=== PATIENT | female | born 1935 | race Caucasian/White ===

== ENCOUNTER 2020-09-30 09:14 | Emergency (ER) | payer OTHER, SELFPAY ==
[2020-09-30 09:26] VITALS: BP 185/53; PULSE 78; RESP 16; TEMP 36.4; O2SAT 97
--- NOTE | 2020-09-30 09:48 | ED.GENADULT ---
HPI - General Adult General Chief complaint: Dental/Oral Stated complaint: jaw pain Time Seen by Provider: 09/30/20 09:48 Source: patient Mode of arrival: ambulatory Limitations: no limitations History of Present Illness HPI narrative: 84-year-old female patient presents to the [facility] with complaints of left-sided jaw pain for the past 3 to 4 days. Patient denies any injury to the area. Patient denies any pain when opening and closing the mouth or denies any pain with eating. Patient states she has only taken 1 Tylenol in the last 4 days since she has had the pain. Patient states the pain kind of comes and goes however when it does, feels like a shooting pain down the left side of the cheek and gets very intense. Patient states she does not have any teeth in the back of her mouth. Denies any ear pain or sore throat. Denies any fevers, body aches or chills. Patient does have history of CVA. Patient states that she still does smoke as well. Related Data Home Medications Medication Instructions Recorded Confirmed amlodipine 09/30/20 atorvastatin 09/30/20 clopidogrel 09/30/20 lisinopril 09/30/20 metoprolol succinate PO 09/30/20 Allergies Allergy/AdvReac Type Severity Reaction Status Date / Time Penicillins Allergy Unknown Verified 05/24/16 10:01 Review of Systems Review of Systems: Narrative: CONSTITUTIONAL: Denies fever, chills, or sweats. EYES: Denies visual changes, redness, or discharge. ENT: Denies rhinorrhea, congestion, sore throat, or otalgia. CARDIOVASCULAR: Denies chest pain, palpitations, or edema. RESPIRATORY: Denies cough or dyspnea. GASTROINTESTINAL: Denies abdominal pain, nausea, vomiting, or diarrhea. GENITOURINARY: Denies dysuria or hematuria. SKIN: Denies rash or itching. MUSCULOSKELETAL: Denies back pain, joint pain, or myalgia. NEUROLOGIC: Denies headache, numbness, or weakness. Positive left-sided jaw pain x3 to 4 days PSYCHIATRIC: Denies anxiety or depression. [facility] Past Medical History Medical History (Updated 09/30/20 @ 10:06 by AVA Mojica) Cataract Bilateral CVA (cerebral vascular accident) X4 Diabetes Controlled with diet Hypercholesteremia Hypertension Pneumonia TIA (transient ischemic attack) Surgical History Surgical History (Updated 09/30/20 @ 09:49 by AVA Mojica) H/O: hysterectomy History of appendectomy Hx of cholecystectomy Family History Family History (Updated 09/30/20 @ 09:51 by AVA Mojica) Other Acute alcohol abuse Acute myocardial infarction Alzheimer disease Brain aneurysm COPD (chronic obstructive pulmonary disease) Carcinoma of colon Cerebrovascular accident Diabetes mellitus Heart disease Hypertension Throat cancer Exam Narrative: Exam Narrative: GENERAL: Well-appearing, well-nourished, and in no acute distress. HEAD: Normocephalic, atraumatic. EYES: PERRLA and EOMI. ENT: Nares clear, no rhinorrhea or epistaxis. Mucous membranes moist. Bilateral TMs are clear with no erythema or foreign bodies in the canal. There is some scar tissue noted to bilateral TMs. Posterior pharynx with no erythema, tonsillectomy, exudates or lesions present. The oral cavity does not suggest any obvious abscesses or infected dental caries. There is no pain on palpation to the left cheek or no obvious abscesses are identified. No obvious TMJ noted during exam. NECK: Supple. No lymphadenopathy CHEST: Clear to auscultation. No respiratory distress. HEART: Regular rate and rhythm. No murmur heard. Normal peripheral pulses. ABDOMEN: Soft, nontender, nondistended, normal active bowel sounds. EXTREMITIES: Normal range of motion. No edema. SKIN: Warm, dry, no rash. NEURO: No focal deficits. Alert and oriented x3. Course Reevaluation(s) Reevaluation #1: attempted to call patients's primary doctor to try and get her follow up today or tomorrow, unable to get thru at this time. advised patient to try and call PMD la
--- NOTE | 2020-09-30 10:03 | ECG_ITS ---
Measurements Intervals [place] Rate: 66 P: 72 WA: 183 QRS: 40 QRSD: 85 T: 69 QT: 394 QTc: 414 Interpretive Statements SINUS RHYTHM VENTRICULAR PREMATURE COMPLEX DELAYED PRECORDIAL R/S TRANSITION BORDERLINE ST-T WAVE ABNORMALITY- HIGH LATERAL LEADS BASELINE ARTIFACT- I, II, III, AVR, AVL, AVF, V1-V2, V6 BORDERLINE ECG Electronically Signed On 09-30-2020 11:45:22 CDT by Fan Bloom D.O.
== END 2020-09-30 10:25 | disposition home or self-care (01) ==
PROVIDERS: Emergency Provider Nurse Practitioner Family; PCP Internal Medicine
DX: R68.84 Jaw pain (principal); Z86.73 Personal history of transient ischemic attack (TIA), and cerebral infarction without residual deficits; E78.00 Pure hypercholesterolemia, unspecified; I10 Essential (primary) hypertension; E11.36 Type 2 diabetes mellitus with diabetic cataract
CPT/HCPCS: 93005; 99213; G0463

== ENCOUNTER 2020-09-30 14:11 | Emergency (ER) | payer OTHER, SELFPAY ==
--- NOTE | ~2020-09-30 | CT_ITS ---
EXAMINATION: CT facial bones w con DATE: 09/30/2020 18:50 INDICATION: Left facial pain. TECHNIQUE: Computed tomography (CT) of the facial bones and maxillofacial region was performed with 7 5 mL Omnipaque 350 intravenous contrast. Automated exposure control and iterative reconstruction tech Lazarus Effect were employed. The dose-length product was 270.87 mGy-cm. COMPARISON: None. FINDINGS: There are likely changes of ocular lens replacement surgeries. There is a 2.3 cm nodule in left thyroid lobe. There are no pathologically enlarged lymph nodes. There is a 1.8 x 1.3 cm cystic m ass in superficial right parotid gland. There is a 10 x 13 mm mass in superficial right parotid gland . There is plaque in the proximal internal carotid arteries with less than 50% stenosis relative to n ormal distal artery lumen diameters. There is severe cervical spondylosis. IMPRESSION: 1. 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 The differential diagnosis includes benign mixed tumor, Warthin koko or, or less likely primary malignancy or katie metastatic disease. Reviewed, dictated and finalized at location A. IMPRESSION: 1. 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 The differential diagnosis includes benign mi xed tumor, Warthin tumor, or less likely primary malignancy or katie metastatic disease.
[2020-09-30 15:05] VITALS: BP 128/49; PULSE 70; RESP 16; TEMP 36.1; O2SAT 95
[2020-09-30 17:05] VITALS: BP 159/59; PULSE 72; RESP 16; O2SAT 94
[2020-09-30 17:35] LABS: Basophils Percent Auto 0.5 % (0.2-1.2); Eosinophils Absolute Auto 0.3 K/mm3 (0-0.3); Eosinophils Percent Auto 3.8 % (0-4.4); Hematocrit 45.9 % (37.0-47.0); Hemoglobin 15.1 g/dL (12.0-15.0); Immature Granulocyte Absolute 0.02 K/mm3 (0.00-0.031); Immature Granulocyte Percent A 0.2 % (0-0.5); Lymphocytes Percent Auto 25.9 % (18.3-44.2); Mean Corpuscular HGB Conc 32.9 g/dl (32-36); Mean Corpuscular Hemoglobin 28.9 pg (26-34); Mean Corpuscular Volume 87.9 fl (80-100); Mean Platelet Volume 10.3 fl (7.4-10.4); Monocytes Absolute Auto 0.6 K/mm3 (0.1-0.6); Monocytes Percent Auto 7.3 % (2.6-8.5); Neutrophils Absolute Auto 5.1 K/mm3 (1.3-6.7); Neutrophils Percent Auto 62.3 % (45.5-73.1); Platelet Count Result 231 k/mm3 (150-375); Red Blood Count 5.22 M/mm3 (4.2-5.4); Red Cell Distribution Width 12.9 % (11.5-14.5); White Blood Count 8.1 K/mm3 (4.5-10.0)
[2020-09-30 17:50] LABS: Anion Gap 6 mmol/L (8-16); Blood Urea Nitrogen 20 mg/dL (7-17); CRP < 0.5 mg/dL (<1.0); Carbon Dioxide 25 mmol/L (22-30); Chloride 108 mmol/L (98-107); Estimated CRCL calculation 23 ml/min; Estimated Glomerular Filt Rate 39; Glucose 108 mg/dL (65-105); Potassium 4.6 mmol/L (3.4-5.0); Sodium 139 mmol/L (137-145)
--- NOTE | 2020-09-30 19:31 | ED.GENADULT ---
HPI - General Adult General Chief complaint: Unspecified Stated complaint: r jaw pain/eye drooping Time Seen by Provider: 09/30/20 16:55 Source: patient and family Mode of arrival: ambulatory Limitations: no limitations History of Present Illness HPI narrative: 84-year-old with a history of hypertension, CVA here with complaints of left facial pain mostly around the cheek area for last few days. Patient states she went to urgent care and was later referred here to the ER for evaluation. She patient denies any trauma. No history of fever or chills. EKG done at urgent care was unremarkable. Related Data Home Medications Medication Instructions Recorded Confirmed amlodipine 09/30/20 atorvastatin 09/30/20 clopidogrel 09/30/20 lisinopril 09/30/20 metoprolol succinate PO 09/30/20 Allergies Allergy/AdvReac Type Severity Reaction Status Date / Time Penicillins Allergy Severe Anaphylaxis Verified 09/30/20 17:05 Review of Systems Review of Systems: All systems reviewed & are unremarkable except as noted in HPI and below Constitutional: Constitutional: Reports no additional constitutional complaints Eyes: Eyes: Reports no additional eye complaints ENT: Reports as per HPI Cardiovascular: Cardiovascular: Reports no additional cardiovascular complaints Respiratory: Respiratory: Reports no additional respiratory complaints Gastrointestinal: Gastrointestinal: Reports no additional gastrointestinal complaints Musculoskeletal: Musculoskeletal: Reports no additional musculoskeletal complaints Integumentary/Breasts: Skin/Breast: Reports system reviewed and no additional complaints, except as docu PMFSH Past Medical History Medical History Cataract Bilateral CVA (cerebral vascular accident) X4 Diabetes Controlled with diet Hypercholesteremia Hypertension Pneumonia TIA (transient ischemic attack) Surgical History Surgical History H/O: hysterectomy History of appendectomy Hx of cholecystectomy Family History Family History Other Acute alcohol abuse Acute myocardial infarction Alzheimer disease Brain aneurysm COPD (chronic obstructive pulmonary disease) Carcinoma of colon Cerebrovascular accident Diabetes mellitus Heart disease Hypertension Throat cancer Exam Narrative: Exam Narrative: GENERAL: Well-appearing, well-nourished, and in no acute distress. HEAD: Normocephalic, atraumatic. no facial rash or swelling EYES: PERRLA and EOMI. ENT: Nares clear, no rhinorrhea or epistaxis. Mucous membranes moist.Dental filling in #16 and 17 NECK: Supple. CHEST: Clear to auscultation. No respiratory distress. HEART: Regular rate and rhythm. No murmur heard. Normal peripheral pulses. ABDOMEN: Soft, nontender, nondistended, normal active bowel sounds. EXTREMITIES: Normal range of motion. No edema. SKIN: Warm, dry, no rash. NEURO: No focal deficits. Alert and oriented x3. PSYCH: Normal mood and affect. Course Course Emergency Course: Inform patient about her lab work and CT findings. 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 Vital Signs Vital signs: Vital Signs Temperature 36.1 C L 09/30/20 15:05 Pulse Rate 70 09/30/20 15:05 Respiratory Rate 16 09/30/20 15:05 Blood Pressure 128/49 L 09/30/20 15:05 Pulse Oximetry 95 09/30/20 15:05 Temperature 36.1 C L 09/30/20 15:05 Pulse Rate 72 09/30/20 17:05 Respiratory Rate 16 09/30/20 17:05 Blood Pressure 159/59 H 09/30/20 17:05 Pulse Oximetry 94 09/30/20 17:05 Medical Decision Making Vital Signs Vital Signs: Vital Signs Temperature 36.1 C L 09/30/20 15:05 Pulse Rate 70 09/30/20 15:05 Respiratory Rate 16 09/30
[2020-09-30 20:05] VITALS: BP 100/65; PULSE 60; RESP 14; TEMP 36.6; O2SAT 100
== END 2020-09-30 20:06 | disposition home or self-care (01) ==
PROVIDERS: Emergency Provider Family Medicine; PCP Internal Medicine
DX: R51.9 Headache, unspecified (principal); K08.89 Other specified disorders of teeth and supporting structures; I10 Essential (primary) hypertension; E11.9 Type 2 diabetes mellitus without complications; E78.00 Pure hypercholesterolemia, unspecified; H26.9 Unspecified cataract; Z86.73 Personal history of transient ischemic attack (TIA), and cerebral infarction without residual deficits; K11.9 Disease of salivary gland, unspecified
CPT/HCPCS: 36415; 70487; 80048; 85025; 86140; 93005; 99284; Q9967

== ENCOUNTER 2020-11-20 13:05 | Emergency (ER) | payer OTHER, SELFPAY ==
--- NOTE | ~2020-11-20 | XR_ITS ---
EXAMINATION: XR wrist RT min 3V EXAM DATE: 11/20/2020 13:21 INDICATION: Fall 3 days ago right wrist pain/swelling. Initial encounter. TECHNIQUE: Right wrist frontal, frontal with ulnar deviation, oblique and lateral projections obtain ed and reviewed. There is no prior study for comparison. FINDINGS: Right wrist scapholunate joint space is maintained. Possible acute closed posttraumatic non displaced fracture of the radius dorsally seen on the lateral projection. This finding has been indic ated, marked on the examination for review, clinical correlation. There is swelling over the posterio r aspect of the wrist. There is no subcutaneous gas. Some faint radial and ulnar arterial calcifications. There are no rad iopaque foreign bodies. There is moderate 1st carpometacarpal joint primary osteoarthritis. IMPRESSION: Possible acute nondisplaced right distal radial metaphyseal fracture dorsally. Reviewed, dictated and finalized at location A. IMPRESSION: Possible acute nondisplaced right distal radial metaphyseal fractur e dorsally.
[2020-11-20 13:11] VITALS: BP 174/45; PULSE 66; RESP 16; TEMP 36.6; O2SAT 97
[2020-11-20 13:16] VITALS: BP 174/45; PULSE 66; RESP 16; TEMP 36.6; O2SAT 97
--- NOTE | 2020-11-20 13:21 | ED.GENADULT ---
HPI - General Adult General Chief complaint: Extremity Injury, Upper Stated complaint: Right Wrist Pain Time Seen by Provider: 11/20/20 13:15 Source: patient and RN notes reviewed Mode of arrival: ambulatory Limitations: no limitations History of Present Illness HPI narrative: 84-year-old female presents with daughter, both complains of right wrist pain for the past 3 days. Jackie reports falling onto RT wrist causing it to bend backwards on 11/17/2020 causing injury. Tylenol and ice without relief. Symptoms continue to worsen with usage. No numbness or tingling. No radiating pain. Swelling. No immobility, suspected foreign body, or abuse. Exacerbating factors consist of movement. Some relieving factor is rest. The dominant hand is the Right hand. Remains active. The patient and daughter reports they have not been diagnosed with COVID-19. The patient and daughter reports Jackie received 2 Moderna COVID-19 vaccines. The patient and daughter reports they are not waiting for the results of a COVID-19 lab test. The patient and daughter reports they do not have chills, weakness, fatigue, or myalgia. The patient and daughter reports they do not have a new or worsening cough or shortness of breath. Denies chest pain. The patient and daughter reports they do not have any rhinorrhea, congestion, loss of taste or smell, sore throat, nausea, vomiting, abdominal pain, and diarrhea. Denies recent traveling. Denies concerns for COVID-19 or exposures. At this time, patient is not suspected of having COVID-19. Some parts of this dictation were generated by voice recognition software and may contain typographical and/or grammatical inaccuracies. Related Data Home Medications Medication Instructions Recorded Confirmed amlodipine 09/30/20 atorvastatin 09/30/20 clopidogrel 09/30/20 lisinopril 09/30/20 metoprolol succinate PO 09/30/20 Allergies Allergy/AdvReac Type Severity Reaction Status Date / Time Penicillins Allergy Severe Anaphylaxis Verified 09/30/20 17:05 Review of Systems Review of Systems: Narrative: CONSTITUTIONAL: Denies fever, chills, sweats. EYES: Denies visual changes, redness, discharge. ENT: Denies rhinorrhea, congestion, sore throat, otalgia. CARDIOVASCULAR: Denies chest pain, palpitations, edema. RESPIRATORY: Denies dyspnea, wheezing, cough. GASTROINTESTINAL: Denies abdominal pain, nausea, vomiting, diarrhea. SKIN: Denies rash or itching. MUSCULOSKELETAL: Denies acute back pain or myalgia. Complains of right wrist pain. NEUROLOGIC: Denies numbness or focal weakness. PSYCHIATRIC: Denies anxiety or depression. All other systems reviewed & are unremarkable except as noted in HPI and below. [facility] Past Medical History Medical History Cataract Bilateral CVA (cerebral vascular accident) X4 Diabetes Controlled with diet Hypercholesteremia Hypertension Pneumonia TIA (transient ischemic attack) Surgical History Surgical History H/O: hysterectomy History of appendectomy Hx of cholecystectomy Family History Family History Other Acute alcohol abuse Acute myocardial infarction Alzheimer disease Brain aneurysm COPD (chronic obstructive pulmonary disease) Carcinoma of colon Cerebrovascular accident Diabetes mellitus Heart disease Hypertension Throat cancer Social History Social History (Updated 11/20/20 @ 14:25 by AVA Turk) Smoking packs per day: 0.45 Smoking cigarettes per day: 9.0 Years smoked: 60 Smoking pack-years: 27.00 Smoking status: Current every day smoker Tobacco type: cigarettes Second hand tobacco smoke exposure: Yes Alcohol intake: never Substance use: never Substance use type: does not use Living arrangements: with family Occupation/Education:
== END 2020-11-20 13:55 | disposition home or self-care (01) ==
PROVIDERS: Emergency Provider Nurse Practitioner Family; PCP Internal Medicine
DX: S52.521A Torus fracture of lower end of right radius, initial encounter for closed fracture (principal); W19.XXXA Unspecified fall, initial encounter; H26.9 Unspecified cataract; E11.9 Type 2 diabetes mellitus without complications; I10 Essential (primary) hypertension; Z86.73 Personal history of transient ischemic attack (TIA), and cerebral infarction without residual deficits; E78.00 Pure hypercholesterolemia, unspecified; F17.210 Nicotine dependence, cigarettes, uncomplicated
CPT/HCPCS: 29125; 73110; 99214; A4565; G0463

== ENCOUNTER 2021-03-04 18:30 | Inpatient (IN) | payer OTHER, SELFPAY ==
--- NOTE | ~2021-03-04 | XR_ITS ---
EXAMINATION: XR chest 2V DATE: 03/09/2021 10:41 INDICATION: Shortness of breath. Cough. Wheezing. TECHNIQUE: Frontal and lateral views of the chest were obtained. COMPARISON: Chest single view 03/05/2021, chest CT 05/24/2016 FINDINGS: There is stable mild scarring at the lung apices. There are airspace opacities in the lower lung zones. There are small pleural effusions. No pneumothorax. The heart size is normal. IMPRESSION: 1. Small pleural effusions. 2. Airspace opacities at the lung bases, consistent with atelectasis versus pneumonia. Reviewed, dictated and finalized at location A. IMPRESSION: 1. Small pleural effusions. 2. Airspace opacities at the lung bases, consistent with atelectasis versus pne umonia.
--- NOTE | ~2021-03-04 | XR_ITS ---
EXAMINATION: XR chest 1V portable DATE: 03/05/2021 15:43 INDICATION: Hypoxia. TECHNIQUE: A single frontal view of the chest was obtained. COMPARISON: Chest single view 03/04/2021, chest CT 05/2516 FINDINGS: The chest demonstrates clear lungs without pneumonia, pleural effusion, or pneumothorax. Th e heart size is normal. IMPRESSION: 1. No acute cardiopulmonary disease. Reviewed, dictated and finalized at location A.
--- NOTE | ~2021-03-04 | XR_ITS ---
EXAMINATION: XR chest 1V portable DATE: 03/04/2021 22:18 INDICATION: Hypertension. Preop. TECHNIQUE: A single frontal view of the chest was obtained on 2 radiographs. COMPARISON: Chest 2 views 04/20/2019 FINDINGS: The chest demonstrates clear lungs without pneumonia, pleural effusion, or pneumothorax. Th e heart size is normal. IMPRESSION: 1. No acute cardiopulmonary disease. Reviewed, dictated and finalized at location A.
--- NOTE | ~2021-03-04 | XR_ITS ---
EXAMINATION: XR hip LT 2V w AP pelvis DATE: 03/04/2021 19:32 INDICATION: Left hip pain. TECHNIQUE: An anteroposterior view of the pelvis and 2 views of left hip were obtained. COMPARISON: None. FINDINGS: There is a subcapital fracture left femoral neck. The distal fracture fragment demonstrates impaction and 14 degrees posterior angulation. The hip joint spaces are normal. There is mild lumbar spondylosis. IMPRESSION: 1. Subcapital fracture of left femoral neck. Reviewed, dictated and finalized at location A.
[2021-03-04 19:07] VITALS: BP 150/47; PULSE 73; RESP 18; TEMP 37.1; O2SAT 94
[2021-03-04 21:58] VITALS: BP 155/60; PULSE 71; RESP 16; O2SAT 94
--- NOTE | 2021-03-04 22:06 | ECG_ITS ---
Measurements Intervals [place] Rate: 75 P: 83 HI: 189 QRS: 61 QRSD: 97 T: 74 QT: 390 QTc: 437 Interpretive Statements SINUS RHYTHM BORDERLINE R WAVE PROGRESSION, ANTERIOR LEADS BASELINE ARTIFACT- I, II, III, AVR, AVL, AVF, V3-V6 BORDERLINE ECG Electronically Signed On 03-05-2021 6:29:34 CDT by Fan Bloom D.O.
--- NOTE | 2021-03-04 22:15 | PC.NURSE ---
Family at bedside requests sedative for pt due to anxiety. EDP notified.
[2021-03-04 22:36] LABS: Basophils Percent Auto 0.2 % (0.2-1.2); Eosinophils Absolute Auto 0.1 K/mm3 (0-0.3); Eosinophils Percent Auto 0.5 % (0-4.4); Hematocrit 38.9 % (37.0-47.0); Hemoglobin 12.7 g/dL (12.0-15.0); Immature Granulocyte Absolute 0.07 K/mm3 (0.00-0.031); Immature Granulocyte Percent A 0.5 % (0-0.5); Lymphocytes Absolute Auto 1.13 K/mm3 (0.9-3.2); Lymphocytes Percent Auto 7.5 % (18.3-44.2); Mean Corpuscular HGB Conc 32.6 g/dl (32-36); Mean Corpuscular Hemoglobin 29.5 pg (26-34); Mean Corpuscular Volume 90.3 fl (80-100); Mean Platelet Volume 10.6 fl (7.4-10.4); Monocytes Absolute Auto 0.8 K/mm3 (0.1-0.6); Monocytes Percent Auto 5.3 % (2.6-8.5); Platelet Count Result 223 k/mm3 (150-375); Red Blood Count 4.31 M/mm3 (4.2-5.4); Red Cell Distribution Width 13.2 % (11.5-14.5); White Blood Count 15.1 K/mm3 (4.5-10.0)
--- NOTE | 2021-03-04 22:38 | ED.LOWEXIN ---
HPI - Extremity Injury (Lower) General Chief Complaint: Extremity Injury, Lower Stated Complaint: fall left hip pain Time Seen by Provider: 03/04/21 21:32 History of Present Illness HPI Narrative: Patient is an 85-year-old female who presents ER with pain to left hip. She had gone outside to throw some chicken bones into the [place] when she tripped and fell landing on the left side. She did not strike her head or lose consciousness. She developed sudden onset pain and decreased range of motion. She has no numbness or tingling. Related Data Home Medications Medication Instructions Recorded Confirmed amlodipine 10 mg PO DAILY 09/30/20 03/05/21 atorvastatin 20 mg PO DAILY 09/30/20 03/05/21 clopidogrel 75 mg PO DAILY 09/30/20 03/05/21 lisinopril 20 mg PO BID 09/30/20 03/05/21 metoprolol succinate 150 mg PO DAILY 09/30/20 03/05/21 oxcarbazepine 300 mg PO BID 03/04/21 03/05/21 Allergies Allergy/AdvReac Type Severity Reaction Status Date / Time Penicillins Allergy Severe Anaphylaxis Verified 03/04/21 22:07 Review of Systems Review of Systems: All systems reviewed & are unremarkable except as noted in HPI and below Constitutional: Constitutional: Denies chills, Denies fever(s) and Denies weakness ENT: Denies nasal congestion and Denies sore throat Respiratory: Respiratory: Denies cough and Denies dyspnea Gastrointestinal: Gastrointestinal: Denies abdominal pain, Denies nausea and Denies vomiting Musculoskeletal: Musculoskeletal: Reports arthralgias, Denies joint swelling and Denies muscle cramps Neurologic: Denies syncope, Denies headache(s), Denies focal weakness and Denies numbness [facility] Past Medical History Medical History (Updated 03/06/21 @ 06:46 by Josh Pryor MD) Cataract Bilateral CVA (cerebral vascular accident) X4 Diabetes Controlled with diet Hypercholesteremia Hypertension Pneumonia TIA (transient ischemic attack) Surgical History Surgical History H/O: hysterectomy History of appendectomy Hx of cholecystectomy Family History Family History Other Acute alcohol abuse Acute myocardial infarction Alzheimer disease Brain aneurysm COPD (chronic obstructive pulmonary disease) Carcinoma of colon Cerebrovascular accident Diabetes mellitus Heart disease Hypertension Throat cancer Social History Social History (Updated 11/20/20 @ 14:25 by AVA Turk) Smoking packs per day: 1 Smoking cigarettes per day: 20.0 Years smoked: 60 Smoking pack-years: 60.00 Smoking status: Current every day smoker Tobacco type: cigarettes Second hand tobacco smoke exposure: Yes Alcohol intake: never Substance use: never Substance use type: does not use Gender identity (if verbalized by the patient): Female Sexual Orientation (if Verbalized by the Patient): Straight or Heterosexual Spiritual care concerns: No Exam Narrative: GENERAL: Well-appearing, well-nourished, and in no acute distress. HEAD: Normocephalic, atraumatic. ENT: Mucous membranes moist. CHEST: Clear to auscultation. No respiratory distress. HEART: Regular rate and rhythm. Normal peripheral pulses. ABDOMEN: Soft, nontender, nondistended. EXTREMITIES: Decreased range of motion left hip due to pain. No shortening or external rotation. Neurovascular intact. SKIN: Warm, dry, no rash. NEURO: Alert and oriented x3. PSYCH: Normal mood and affect. Course Course Emergency Course: Admit to hospitalist service. Orthopedic surgery consulted. Vital Signs Vital signs: Vital Signs Temperature 98.7 F 03/04/21 19:07 Pulse Rate 73 03/04/21 19:07 Respiratory Rate 18 03/04/21 19:07 Blood Pressure 150/47 H 03/04/21 19:07 Pulse Oximetry 94 03/04/21 19:07 Temperature 97.4 F L 03/06/21 05:18 Pulse Rate 81 03/06/21 05:18 Respiratory Rate 18 03/06/21 05:18
[2021-03-04] MEDS: MORPHINE SULFATE (*CRX) 4 MG/ML INJ IV PUSH (22:42)
[2021-03-04 22:45] LABS: Prothrombin Time 12.7 Seconds (11.1-14.7)
[2021-03-04 22:46] LABS: Partial Thromboplastin Time 27.8 SECONDS (22.3-36.8)
[2021-03-04 22:55] LABS: Anion Gap 14 mmol/L (8-16); Blood Urea Nitrogen 53 mg/dL (7-17); Calcium 8.6 mg/dL (8.4-10.2); Carbon Dioxide 21 mmol/L (22-30); Chloride 103 mmol/L (98-107); Estimated CRCL calculation 21 ml/min; Estimated Glomerular Filt Rate 36; Glucose 145 mg/dL (65-110); Potassium 5.2 mmol/L (3.4-5.0); Sodium 138 mmol/L (137-145)
[2021-03-04] MEDS: SODIUM CHLORIDE 0.9% IV 1,000 ML 999 ML IV CONT (23:05)
--- NOTE | 2021-03-04 23:23 | PM.IMHP ---
H&P: HPI History of Present Illness Date/Time: 03/04/21 23:23 Chief Complaint: Fall Narrative: This is an 85-year-old female with past medical history significant for hypertension, stroke, diabetes, hypercholesteremia, transitory ischemic attack. Patient has been in her usual state of health and she was throwing some chicken bones in the [place] when she fell down there was no loss of consciousness but patient was unable to get back up on her on and was having extreme excruciating pain of upon bearing weight and movement of the left lower extremity. She was brought to the emergency room and she has been found to have a subcapital fracture of the left femoral head. Patient denies any fevers, chills, rigors, cough, sputum production, nausea, vomiting, abdominal pain, syncope or near syncope, dizziness, lightheadedness, chest pain, PND, orthopnea or leg swelling. Review of Systems Review of Systems: Fall Constitutional: Constitutional: Denies chills, Denies fatigue, Denies fever(s) and Denies weakness Eyes: Eyes: Denies change in vision ENT: Denies dysphagia, Denies nasal congestion, Denies nasal discharge, Denies nasal obstruction and Denies odynophagia Cardiovascular: Cardiovascular: Denies chest pain, Denies irregular heart rhythm, Denies lightheadedness, Denies radiating jaw, neck or arm pain, Denies palpitations, Denies dyspnea and Denies orthopnea Respiratory: Respiratory: Denies cough, Denies dyspnea and Denies wheezing Gastrointestinal: Gastrointestinal: Denies abdominal pain, Denies diarrhea, Denies nausea and Denies vomiting Genitourinary: Genitourinary: Reports no additional female genitourinary complaints Musculoskeletal: Musculoskeletal: Reports deformity, Reports arthralgias and Reports limited range of motion Comments: Left hip Integumentary/Breasts: Skin/Breast: Reports system reviewed and no additional complaints, except as docu Neurologic: Reports system reviewed and no additional complaints, except as documented Psychiatric: Psychiatric: Reports no additional psychiatric complaints Endocrine: Endocrine: Reports no additional endocrine complaints Hematologic/Lymphatic: Hematologic/Lymphatic: Reports no additional hematologic/lymphatic complaints Allergic/Immunologic: Allergic/Immunologic: Reports no additional allergic/immunologic complaints PMFSH Past Medical History Medical History (Updated 03/05/21 @ 05:09 by Jakob Chinchilla MD) Cataract Bilateral CVA (cerebral vascular accident) X4 Diabetes Controlled with diet Hypercholesteremia Hypertension Pneumonia TIA (transient ischemic attack) Surgical History Surgical History H/O: hysterectomy History of appendectomy Hx of cholecystectomy Family History Family History Other Acute alcohol abuse Acute myocardial infarction Alzheimer disease Brain aneurysm COPD (chronic obstructive pulmonary disease) Carcinoma of colon Cerebrovascular accident Diabetes mellitus Heart disease Hypertension Throat cancer Social History Social History (Updated 11/20/20 @ 14:25 by AVA Turk) Smoking packs per day: 1 Smoking cigarettes per day: 20.0 Years smoked: 60 Smoking pack-years: 60.00 Smoking status: Current every day smoker Tobacco type: cigarettes Second hand tobacco smoke exposure: Yes Alcohol intake: never Substance use: never Substance use type: does not use Gender identity (if verbalized by the patient): Female Sexual Orientation (if Verbalized by the Patient): Straight or Heterosexual Spiritual care concerns: No Meds Home Medications and Allergies Home Medications Medication Instructions Recorded Confirmed Type amlodipine 10 mg PO DAILY 09/30/20 03/05/21 History atorvastatin 20 mg PO DAILY 09/30/20 03/05/21 History clopidogrel 75 mg PO DAILY 09/30/20 03/05/21 History
[2021-03-04 23:26] VITALS: BP 152/52; PULSE 75; RESP 19; O2SAT 94
--- NOTE | 2021-03-04 23:36 | PC.NURSE ---
Called laboratory to follow up on urine sample results. Spoke with Bhavya and was informed that she would receive/run sample at this time.
[2021-03-04 23:49] LABS: Add Urine Microscopic? YES; Appearance Urine Clear (Clear); Bilirubin Urine Negative (Negative); Color Urine Yellow (Yellow); Glucose Urine UA Negative (Negative); Ketones Urine Negative (Negative); Leukocyte Esterase Ur 1+ LEU/UL (Negative); Nitrate Urine Negative (Negative); Protein Urine 2+ mg/dL (Negative); Specific Grav Ur 1.018 (1.001-1.035); Squamous Epithelial Cell Urine Occasional /hpf (Few); Urobilinogen Urine Negative mg/dL (<2.0)
[2021-03-04 23:59] LABS: Blood Urine Negative (Negative)
[2021-03-05] VITALS (11 sets, daily range): BP systolic 137–158; BP diastolic 49–78; PULSE 68–86; RESP 14–20; TEMP 36.2–37.2; O2SAT 86–94; BMI 21.4
--- NOTE | 2021-03-05 00:08 | ADMGEN ---
This patient, Jackie Flores, was admitted to Medical Room 253-01. Patient/family oriented to hospital policies and general routines including ID bracelet, bed and alarms, visiting hours, pain management, procedures, bathroom and other care routines, personal items, smoking policy, room service/diet, and visiting hours. Information on how to activate the Rapid Response Team has been discussed. Patient/Family are encouraged to report perceived risks to care and to ask questions if they do not understand what they are told or what they should do.
[2021-03-05] MEDS: SODIUM CHLORIDE 0.9% IV 1,000 ML 80 ML IV CONT (00:26)
[2021-03-05] MEDS: MORPHINE SULFATE (*CRX) 4 MG/ML INJ IV PUSH ×2 (03:36→13:16)
[2021-03-05] MEDS: ONDANSETRON INJ 4 MG/2 ML VIAL IV PUSH (03:36)
[2021-03-05] MEDS: ATORVASTATIN 20 MG TABLET PO (08:34)
[2021-03-05] MEDS: OXcarbazepine 300 MG TABLET PO ×2 (08:34→18:18)
[2021-03-05] MEDS: lisinopriL 20 MG TABLET PO ×2 (08:35→18:18)
[2021-03-05] MEDS: amLODIPine BESYLATE 5 MG TABLET 10 MG PO (08:35)
[2021-03-05] MEDS: METOPROLOL SUCCINATE EXT REL 50 MG TABCR 150 MG PO (08:35)
[2021-03-05 09:16] LABS: Basophils Percent Auto 0.3 % (0.2-1.2); Eosinophils Absolute Auto 0.2 K/mm3 (0-0.3); Eosinophils Percent Auto 1.8 % (0-4.4); Hematocrit 37.5 % (37.0-47.0); Hemoglobin 12.1 g/dL (12.0-15.0); Immature Granulocyte Absolute 0.04 K/mm3 (0.00-0.031); Immature Granulocyte Percent A 0.4 % (0-0.5); Lymphocytes Absolute Auto 1.37 K/mm3 (0.9-3.2); Lymphocytes Percent Auto 12.7 % (18.3-44.2); Mean Corpuscular HGB Conc 32.3 g/dl (32-36); Mean Corpuscular Hemoglobin 29.5 pg (26-34); Mean Corpuscular Volume 91.5 fl (80-100); Monocytes Absolute Auto 0.7 K/mm3 (0.1-0.6); Neutrophils Absolute Auto 8.5 K/mm3 (1.3-6.7); Neutrophils Percent Auto 78.8 % (45.5-73.1); Platelet Count Result 203 k/mm3 (150-375); Red Cell Distribution Width 13.2 % (11.5-14.5); White Blood Count 10.8 K/mm3 (4.5-10.0)
[2021-03-05 09:30] LABS: Anion Gap 11 mmol/L (8-16); Blood Urea Nitrogen 40 mg/dL (7-17); Calcium 8.1 mg/dL (8.4-10.2); Carbon Dioxide 20 mmol/L (22-30); Chloride 108 mmol/L (98-107); Estimated CRCL calculation 22 ml/min; Estimated Glomerular Filt Rate 39; Glucose 116 mg/dL (65-110); Potassium 4.8 mmol/L (3.4-5.0); Sodium 139 mmol/L (137-145)
--- NOTE | 2021-03-05 11:09 | PM.IMPN ---
Progress Note: A&P Assessment and Plan (1) Subcapital fracture of left femur: Code(s): S72.012A - Unspecified intracapsular fracture of left femur, initial encounter for closed fracture Status: Acute Assessment and Plan: Patient is an 85-year-old woman with a history of CVA, diet-controlled diabetes, hypercholesterolemia, hypertension, who presented emergency room after sustaining a fall while outside. The patient states she was in her yd throwing out some chicken bones when she slipped and fell on her left hip. She was unable to get up and had to yell at her neighbor for help. She was down on the ground for about 30 minutes but denies any head trauma, loss of consciousness. Initial labs showed elevated blood pressure 150/47, heart rate 73, afebrile, normal oxygenation on room air. Initial labs showed slight leukocytosis at 15,000, elevated neutrophils at 86%, potassium elevated slightly at 5.2, creatinine appears to be at baseline at 1.4, BUN 53, glucose 145. Hip and pelvis x-ray showed subcapital fracture of the left femoral neck. Chest x-ray showed no acute cardiopulmonary disease. Urinalysis showed no acute signs of infection. She was admitted into the hospital with a consult to Orthopedic surgery for further evaluation of her hip fracture. Orthopedic surgeon Dr. Patrick evaluated the patient this morning and states he would not do surgery until Wednesday or Wednesday since she has been on Plavix routinely. Plavix has been held at this time and she has been placed on a regular diet. She is not currently have a Carrasquillo catheter in place, I told the patient if she ever has issues with discomfort with her being placed on the bedpan or wanting a Carrasquillo catheter that we could do that. Continue p.r.n. pain control Will proceed with DVT prophylaxis until surgery with Lovenox daily Continue monitoring. Appreciate Ortho does input. (2) Diabetes: Code(s): E11.9 - Type 2 diabetes mellitus without complications Status: Inactive Assessment and Plan: Apparently diet controlled on no meds. Serum glucose this morning at 9:00 a.m. was 116. Will check a hemoglobin A1c in the morning. Will hold off on glucose testing at this time. (3) Hypercholesteremia: Code(s): E78.00 - Pure hypercholesterolemia, unspecified Status: Inactive Assessment and Plan: Continue statin (4) Hypertension: Code(s): I10 - Essential (primary) hypertension Status: Inactive Assessment and Plan: Blood pressure is elevated most likely due to pain. Will continue on lisinopril metoprolol at this time. Continue monitoring to make adjustments if needed. (5) CVA (cerebral vascular accident): Code(s): I63.9 - Cerebral infarction, unspecified Status: Inactive Assessment and Plan: Patient is on Plavix, which is being held at this time for her to be going to surgery hopefully Wednesday or Wednesday. She denies any history of atrial fibrillation or atrial flutter Will continue monitoring for any stroke-like symptoms. Time Spent With Patient Time with patient: 25 - 35 minutes Subjective Date/time seen: 03/05/21 11:09 Interval history: Date of service 03/05/2021: Patient reports not having much left hip pain unless she moves around in certain positions. She is eating and drinking without any issues currently. Denies any fevers, chills, chest pain, shortness breath, cough, nausea, vomiting, abdominal pain, leg swelling, calf pain, lightheadedness, dizziness, or any other symptoms at this time. Review of Systems Review of Systems: All systems reviewed & are unremarkable except as noted in HPI and below Exam Narrative: General: 85-year-old woman laying in bed watching
[2021-03-05] MEDS: ENOXAPARIN 30 MG/0.3 ML SYRINGE SUB-Q (13:34)
[2021-03-05] MEDS: ALBUTEROL SULFATE (*SP) AEROSOL 1 PUFF 2 PUFF INHALATION ×2 (15:17→19:31)
[2021-03-05] MEDS: DOCUSATE SODIUM 100 MG CAPSULE PO (20:21)
[2021-03-06] VITALS (9 sets, daily range): BP systolic 137–178; BP diastolic 40–68; PULSE 76–88; RESP 16–20; TEMP 36.3–37.3; O2SAT 90–95
[2021-03-06 05:54] LABS: Hematocrit 33.4 % (37.0-47.0); Hemoglobin 10.8 g/dL (12.0-15.0); Mean Corpuscular HGB Conc 32.3 g/dl (32-36); Mean Corpuscular Hemoglobin 29.6 pg (26-34); Mean Corpuscular Volume 91.5 fl (80-100); Platelet Count Result 163 k/mm3 (150-375); Red Blood Count 3.65 M/mm3 (4.2-5.4); Red Cell Distribution Width 13.2 % (11.5-14.5); White Blood Count 8.7 K/mm3 (4.5-10.0)
[2021-03-06 06:01] LABS: Anion Gap 11 mmol/L (8-16); Blood Urea Nitrogen 32 mg/dL (7-17); Calcium 8.1 mg/dL (8.4-10.2); Carbon Dioxide 21 mmol/L (22-30); Chloride 107 mmol/L (98-107); Estimated CRCL calculation 22 ml/min; Estimated Glomerular Filt Rate 39; Glucose 121 mg/dL (65-110); Potassium 4.3 mmol/L (3.4-5.0); Sodium 139 mmol/L (137-145)
[2021-03-06 08:01] LABS: Hemoglobin A1C 5.7 % (<5.7)
[2021-03-06] MEDS: ALBUTEROL SULFATE (*SP) AEROSOL 1 PUFF 2 PUFF INHALATION ×4 (08:50→21:08)
[2021-03-06] MEDS: DOCUSATE SODIUM 100 MG CAPSULE PO ×2 (09:10→20:13)
[2021-03-06] MEDS: OXcarbazepine 300 MG TABLET PO ×2 (09:10→16:22)
[2021-03-06] MEDS: amLODIPine BESYLATE 5 MG TABLET 10 MG PO (09:10)
[2021-03-06] MEDS: ATORVASTATIN 20 MG TABLET PO (09:10)
[2021-03-06] MEDS: ENOXAPARIN 30 MG/0.3 ML SYRINGE SUB-Q (09:10)
[2021-03-06] MEDS: METOPROLOL SUCCINATE EXT REL 50 MG TABCR 150 MG PO (09:10)
[2021-03-06] MEDS: lisinopriL 20 MG TABLET PO ×2 (09:11→16:22)
--- NOTE | 2021-03-06 09:44 | PM.IMPN ---
Progress Note: A&P Assessment and Plan (1) Subcapital fracture of left femur: Code(s): S72.012A - Unspecified intracapsular fracture of left femur, initial encounter for closed fracture Status: Acute Assessment and Plan: Patient is an 85-year-old woman with a history of CVA, diet-controlled diabetes, hypercholesterolemia, hypertension, who presented emergency room after sustaining a fall while outside. The patient states she was in her yd throwing out some chicken bones when she slipped and fell on her left hip. She was unable to get up and had to yell at her neighbor for help. She was down on the ground for about 30 minutes but denies any head trauma, loss of consciousness. Initial labs showed elevated blood pressure 150/47, heart rate 73, afebrile, normal oxygenation on room air. Initial labs showed slight leukocytosis at 15,000, elevated neutrophils at 86%, potassium elevated slightly at 5.2, creatinine appears to be at baseline at 1.4, BUN 53, glucose 145. Hip and pelvis x-ray showed subcapital fracture of the left femoral neck. Chest x-ray showed no acute cardiopulmonary disease. Urinalysis showed no acute signs of infection. She was admitted into the hospital with a consult to Orthopedic surgery for further evaluation of her hip fracture. Orthopedic surgeon Dr. Patrick evaluated the patient this morning and states he would not do surgery until Wednesday or Wednesday since she has been on Plavix routinely. Plavix has been held at this time and she has been placed on a regular diet. She is not currently have a Carrasquillo catheter in place, I told the patient if she ever has issues with discomfort with her being placed on the bedpan or wanting a Carrasquillo catheter that we could do that. Continue p.r.n. pain control Will proceed with DVT prophylaxis until surgery with Lovenox daily Continue monitoring. Appreciate Ortho does input. (2) Acute respiratory failure with hypoxia: Code(s): J96.01 - Acute respiratory failure with hypoxia Status: Acute Assessment and Plan: I was called by the nurse on 03/05/2021 for the patient's oxygen saturations being hypoxic at 86%. The patient had been given 4 mg of morphine for her 10 at 10 pain a few hours prior. The patient also had diffuse wheezing throughout both lung myles. The patient was otherwise feeling asymptomatic without any shortness of breath, wheezing or cough. Chest x-ray at bedside showed no acute cardiopulmonary disease Believe her hypoxia could be related to narcotic use and decreased respiratory drive verses wheezing from a long history of smoking and she still continues to smoke 1 pack per day. I scheduled albuterol inhaler q.i.d. for her wheezing Will start Medrol Dosepak Currently she is on 1 L via nasal cannula with an oxygen saturation 93%. She still has diffuse wheezing throughout both lung myles. No rales or rhonchi auscultated. Continue wean oxygen as tolerated. Continue monitoring respiratory status. (3) Wheezing: Code(s): R06.2 - Wheezing Status: Acute Assessment and Plan: Long history of smoking and still smokes 1 pack per day. Probably has underlying COPD. Not on any inhalers at home. (4) Diabetes: Code(s): E11.9 - Type 2 diabetes mellitus without complications Status: Inactive Assessment and Plan: Apparently diet controlled on no meds. Serum glucose this morning 121, hemoglobin A1c is 5.7%. Will hold off on glucose testing at this time. (5) Hypercholesteremia: Code(s): E78.00 - Pure hypercholesterolemia, unspecified Status: Inactive Assessment and Plan: Continue statin (6) Hypertension: Code(s): I10 - Essential (primary) hypertension St
--- NOTE | 2021-03-06 10:51 | PM.CNOR ---
Assessment and Plan Additional Plan Pt seen yesterday but I was unable to log in from home to place a note Left garden 3 femoral neck fx Pt on Plavix requiring 3-5 day holiday to resolve potential bleeding will discuss OR availability with OR staff. can use Lovenox if it is help for 12 hours prior to surg Trapeize to bed Log roll and pillows to help avoid bed sores. History of Present Illness HPI Consult date: 03/06/21 Chief complaint: Hip Fracture PMFSH Past Medical History Medical History (Updated 03/06/21 @ 09:49 by Taina Looney PA-C) Cataract Bilateral CVA (cerebral vascular accident) X4 Diabetes Controlled with diet Hypercholesteremia Hypertension Pneumonia TIA (transient ischemic attack) Surgical History Surgical History H/O: hysterectomy History of appendectomy Hx of cholecystectomy Family History Family History Other Acute alcohol abuse Acute myocardial infarction Alzheimer disease Brain aneurysm COPD (chronic obstructive pulmonary disease) Carcinoma of colon Cerebrovascular accident Diabetes mellitus Heart disease Hypertension Throat cancer Social History Social History (Updated 11/20/20 @ 14:25 by AVA Turk) Smoking packs per day: 1 Smoking cigarettes per day: 20.0 Years smoked: 60 Smoking pack-years: 60.00 Smoking status: Current every day smoker Tobacco type: cigarettes Second hand tobacco smoke exposure: Yes Alcohol intake: never Substance use: never Substance use type: does not use Gender identity (if verbalized by the patient): Female Sexual Orientation (if Verbalized by the Patient): Straight or Heterosexual Spiritual care concerns: No Meds Home Medications and Allergies Home Medications Medication Instructions Recorded Confirmed Type amlodipine 10 mg PO DAILY 09/30/20 03/05/21 History atorvastatin 20 mg PO DAILY 09/30/20 03/05/21 History clopidogrel 75 mg PO DAILY 09/30/20 03/05/21 History lisinopril 20 mg PO BID 09/30/20 03/05/21 History metoprolol succinate 150 mg PO DAILY 09/30/20 03/05/21 History oxcarbazepine 300 mg PO BID 03/04/21 03/05/21 History Allergies Allergy/AdvReac Type Severity Reaction Status Date / Time Penicillins Allergy Severe Anaphylaxis Verified 03/04/21 22:07 Vital Signs Vital Signs - 24 hr 03/05/21 14:00 03/05/21 14:20 03/05/21 14:21 Temperature 37.2 C Pulse Rate 81 Respiratory Rate 16 Blood Pressure 150/53 H Pulse Oximetry 86 L 93 92 03/05/21 16:00 03/05/21 19:32 03/05/21 19:37 Temperature Pulse Rate 86 Respiratory Rate 16 Blood Pressure Pulse Oximetry 94 87 L 91 03/05/21 20:00 03/05/21 21:10 03/06/21 00:00 Temperature 36.3 C L 36.4 C L Pulse Rate 79 80 79 Respiratory Rate 18 20 18 Blood Pressure 157/49 H 162/56 H Pulse Oximetry 92 93 92 03/06/21 05:18 03/06/21 08:56 03/06/21 09:10 Temperature 36.3 C L Pulse Rate 81 83 76 Respiratory Rate 18 18 Blood Pressure 170/60 H Pulse Oximetry 91 94 03/06/21 09:30 Temperature Pulse Rate Respiratory Rate Blood Pressure Pulse Oximetry 95 Exam Extrem: Other: Left hip shortened and ER pain with log roll calves NT bilat NV intact distally Results Labs Result Diagrams: 03/06/21 05:35 03/06/21 05:36 Labs: Abnormal lab results 03/06/21 03/06/21 Range/Units 05:35 05:36 RBC 3.65 L (4.2-5.4) M/mm3 Hgb 10.8 L (12.0-15.0) g/dL Hct 33.4 L (37.0-47.0) % MPV 11.0 H (7.4-10.4) fl Carbon Dioxide 21 L (22-30) mmol/L BUN 32 H (7-17) mg/dL Creatinine 1.30 H (0.7-1.0) mg/dL Estimated GFR 39 L (59 - ) Glucose 121 H (65-110) mg/dL Calcium 8.1 L (8.4-10.2) mg/dL H & H 03/04/21 03/05/21 03/06/21 Range/Units 22:28 08:58 05:35 Hgb 12.7 12.1 10.8 L (12.0-15.0) g/dL Hct 38.9 37.
[2021-03-06] MEDS: methylPREDNISolone (MEDROL) DOSEPACK 4 MG TABLETS PO ×3 (13:27→20:13)
[2021-03-06] MEDS: HYDROcodone/acetaminophen (*CRX) 5-325 MG TABLET 1 TAB PO (16:23)
--- NOTE | 2021-03-06 17:33 | WPDANESEPP ---
Anes - Eval Pre Procedure Procedure: Operation Date: 03/07/21 14:30 Proposed Procedures p Left Hemiarthroplasty - Colin Patrick MD Date/Time: 03/06/21 17:33 Pre Op Diagnosis: Hip Fracture Patient Data Age: 85 Gender: F Height: 1.55 m Weight: 51.5 kg Last Vital Signs Temp 99.2 F 03/06/21 14:10 Pulse 88 03/06/21 14:10 Resp 20 03/06/21 14:10 BP 178/68 H 03/06/21 14:10 Pulse Ox 92 03/06/21 14:10 Allergies Allergy/AdvReac Type Severity Reaction Status Date / Time Penicillins Allergy Severe Anaphylaxis Verified 03/04/21 22:07 Home Medications Medication Instructions Recorded Confirmed Type amlodipine 10 mg PO DAILY 09/30/20 03/05/21 History atorvastatin 20 mg PO DAILY 09/30/20 03/05/21 History clopidogrel 75 mg PO DAILY 09/30/20 03/05/21 History lisinopril 20 mg PO BID 09/30/20 03/05/21 History metoprolol succinate 150 mg PO DAILY 09/30/20 03/05/21 History oxcarbazepine 300 mg PO BID 03/04/21 03/05/21 History Laboratory Tests 03/06/21 03/06/21 03/06/21 05:35 05:36 05:36 WBC 8.7 K/mm3 K/mm3 (4.5-10.0) RBC 3.65 M/mm3 L M/mm3 (4.2-5.4) Hgb 10.8 g/dL L g/dL (12.0-15.0) Hct 33.4 % L % (37.0-47.0) MCV 91.5 fl fl (80-100) MCH 29.6 pg pg (26-34) MCHC 32.3 g/dl g/dl (32-36) RDW 13.2 % % (11.5-14.5) Plt Count 163 k/mm3 k/mm3 (150-375) MPV 11.0 fl H fl (7.4-10.4) Sodium 139 mmol/L mmol/L (137-145) Potassium 4.3 mmol/L mmol/L (3.4-5.0) Chloride 107 mmol/L mmol/L (98-107) Carbon Dioxide 21 mmol/L L mmol/L (22-30) Anion Gap 11 mmol/L mmol/L (8-16) BUN 32 mg/dL H mg/dL (7-17) Creatinine 1.30 mg/dL H mg/dL (0.7-1.0) Estim Creat Clear Calc 22 ml/min ml/min Estimated GFR 39 L (59 - ) Glucose 121 mg/dL H mg/dL (65-110) Hemoglobin A1c 5.7 % % (<5.7) Calcium 8.1 mg/dL L mg/dL (8.4-10.2) Patient hx anesthesia problems: none Family hx anesthesia problems: none PMFSH Past Medical History Medical History Acute respiratory failure with hypoxia Cataract Bilateral CVA (cerebral vascular accident) X4 Diabetes Controlled with diet Hypercholesteremia Hypertension Pneumonia Smoker Subcapital fracture of left femur TIA (transient ischemic attack) Surgical History Surgical History H/O: hysterectomy History of appendectomy Hx of cholecystectomy Family History Family History Other Acute alcohol abuse Acute myocardial infarction Alzheimer disease Brain aneurysm COPD (chronic obstructive pulmonary disease) Carcinoma of colon Cerebrovascular accident Diabetes mellitus Heart disease Hypertension Throat cancer Social History Social History Smoking packs per day: 1 Smoking cigarettes per day: 20.0 Years smoked: 60 Smoking pack-years: 60.00 Smoking status: Current every day smoker Tobacco type: cigarettes Second hand tobacco smoke exposure: Yes Alcohol intake: never Substance use: never Substance use type: does not use Gender identity (if verbalized by the patient): Female Sexual Orientation (if Verbalized by the Patient): Straight or Heterosexual Spiritual care concerns: No Exam Day of Procedure 03/06/21 17:33 Patient weight: normal Risks: VR75 SINUS RHYTHM BORDERLINE R WAVE PROGRESSION, ANTERIOR LEADS BASELINE ARTIFACT- I, II, III, AVR, AVL, AVF, V3-V6 BORDERLINE ECG
[2021-03-07] VITALS (16 sets, daily range): BP systolic 120–195; BP diastolic 40–73; PULSE 71–89; RESP 14–20; TEMP 35.5–37.1; O2SAT 90–100
[2021-03-07] MEDS: methylPREDNISolone (MEDROL) DOSEPACK 4 MG TABLETS PO ×4 (05:44→23:32)
[2021-03-07] MEDS: ATORVASTATIN 20 MG TABLET PO (08:54)
[2021-03-07] MEDS: METOPROLOL SUCCINATE EXT REL 50 MG TABCR 150 MG PO (08:54)
[2021-03-07] MEDS: OXcarbazepine 300 MG TABLET PO ×2 (08:54→19:50)
[2021-03-07] MEDS: DOCUSATE SODIUM 100 MG CAPSULE PO ×2 (08:54→21:28)
[2021-03-07] MEDS: amLODIPine BESYLATE 5 MG TABLET 10 MG PO (08:54)
[2021-03-07] MEDS: lisinopriL 20 MG TABLET PO ×2 (08:54→21:28)
[2021-03-07] MEDS: ALBUTEROL SULFATE (*SP) AEROSOL 1 PUFF 2 PUFF INHALATION ×3 (10:10→21:37)
--- NOTE | 2021-03-07 11:28 | PM.IMPN ---
Progress Note: A&P Assessment and Plan (1) Subcapital fracture of left femur: Code(s): S72.012A - Unspecified intracapsular fracture of left femur, initial encounter for closed fracture Status: Acute Assessment and Plan: Patient is an 85-year-old woman with a history of CVA, diet-controlled diabetes, hypercholesterolemia, hypertension, who presented emergency room after sustaining a fall while outside. The patient states she was in her yd throwing out some chicken bones when she slipped and fell on her left hip. She was unable to get up and had to yell at her neighbor for help. She was down on the ground for about 30 minutes but denies any head trauma, loss of consciousness. Initial labs showed elevated blood pressure 150/47, heart rate 73, afebrile, normal oxygenation on room air. Initial labs showed slight leukocytosis at 15,000, elevated neutrophils at 86%, potassium elevated slightly at 5.2, creatinine appears to be at baseline at 1.4, BUN 53, glucose 145. Hip and pelvis x-ray showed subcapital fracture of the left femoral neck. Chest x-ray showed no acute cardiopulmonary disease. Urinalysis showed no acute signs of infection. She was admitted into the hospital with a consult to Orthopedic surgery for further evaluation of her hip fracture. Orthopedic surgeon Dr. Patrick evaluated the patient and states he will do surgery today 03/07/21 at 3pm. She is not currently have a Carrasquillo catheter in place, I told the patient if she ever has issues with discomfort with her being placed on the bedpan or wanting a Carrasquillo catheter that we could do that. Continue p.r.n. pain control Will proceed with DVT prophylaxis until surgery with Lovenox daily Continue monitoring. Appreciate Ortho does input. (2) Acute respiratory failure with hypoxia: Code(s): J96.01 - Acute respiratory failure with hypoxia Status: Acute Assessment and Plan: I was called by the nurse on 03/05/2021 for the patient's oxygen saturations being hypoxic at 86%. The patient had been given 4 mg of morphine for her 10 at 10 pain a few hours prior. The patient also had diffuse wheezing throughout both lung myles. The patient was otherwise feeling asymptomatic without any shortness of breath, wheezing or cough. Chest x-ray at bedside showed no acute cardiopulmonary disease Believe her hypoxia could be related to narcotic use and decreased respiratory drive verses wheezing from a long history of smoking and she still continues to smoke 1 pack per day. I scheduled albuterol inhaler q.i.d. for her wheezing and started Medrol Dosepak with improvement of symptoms and resting comfortably on RA. Continue monitoring respiratory status. (3) Wheezing: Code(s): R06.2 - Wheezing Status: Acute Assessment and Plan: Long history of smoking and still smokes 1 pack per day. Probably has underlying COPD. Not on any inhalers at home. (4) Diabetes: Code(s): E11.9 - Type 2 diabetes mellitus without complications Status: Inactive Assessment and Plan: Apparently diet controlled on no meds. Serum glucose this morning 121, hemoglobin A1c is 5.7%. Will hold off on glucose testing at this time. (5) Hypercholesteremia: Code(s): E78.00 - Pure hypercholesterolemia, unspecified Status: Inactive Assessment and Plan: Continue statin (6) Hypertension: Code(s): I10 - Essential (primary) hypertension Status: Inactive Assessment and Plan: Blood pressure this morning was 159/55, slightly elevated prior to medications and anxious about surgery. Will continue on lisinopril and metoprolol at this time. Continue monitoring to make adjustments if needed.
[2021-03-07] MEDS: LACTATED RINGERS 1,000 ML 30 ML IV CONT (14:20)
--- NOTE | 2021-03-07 14:45 | WPDANESEPPF ---
Anes - Initial Pre Proc Eval Procedure: Operation Date: 03/07/21 14:30 Proposed Procedures p Left Hemiarthroplasty - Colin Patrick MD Date/Time: 03/07/21 14:45 Surgeon: Taina Looney PA-C Pre Op Diagnosis: Hip Fracture Patient Data Age: 85 Gender: F Height: 1.55 m Weight: 51.5 kg Last Vital Signs Temp 36.4 C L 03/07/21 14:21 Pulse 87 03/07/21 14:21 Resp 20 03/07/21 14:21 BP 185/62 H 03/07/21 14:21 Pulse Ox 93 03/07/21 14:21 Allergies Allergy/AdvReac Type Severity Reaction Status Date / Time Penicillins Allergy Severe Anaphylaxis Verified 03/04/21 22:07 Home Medications Medication Instructions Recorded Confirmed Type amlodipine 10 mg PO DAILY 09/30/20 03/05/21 History atorvastatin 20 mg PO DAILY 09/30/20 03/05/21 History clopidogrel 75 mg PO DAILY 09/30/20 03/05/21 History lisinopril 20 mg PO BID 09/30/20 03/05/21 History metoprolol succinate 150 mg PO DAILY 09/30/20 03/05/21 History oxcarbazepine 300 mg PO BID 03/04/21 03/05/21 History Patient hx anesthesia problems: none Family hx anesthesia problems: none PMFSH Past Medical History Medical History Acute respiratory failure with hypoxia Cataract Bilateral CVA (cerebral vascular accident) X4 Diabetes Controlled with diet Hypercholesteremia Hypertension Pneumonia Smoker Subcapital fracture of left femur TIA (transient ischemic attack) Surgical History Surgical History H/O: hysterectomy History of appendectomy Hx of cholecystectomy Family History Family History Other Acute alcohol abuse Acute myocardial infarction Alzheimer disease Brain aneurysm COPD (chronic obstructive pulmonary disease) Carcinoma of colon Cerebrovascular accident Diabetes mellitus Heart disease Hypertension Throat cancer Social History Social History Smoking packs per day: 1 Smoking cigarettes per day: 20.0 Years smoked: 60 Smoking pack-years: 60.00 Smoking status: Current every day smoker Tobacco type: cigarettes Second hand tobacco smoke exposure: Yes Alcohol intake: never Substance use: never Substance use type: does not use Gender identity (if verbalized by the patient): Female Sexual Orientation (if Verbalized by the Patient): Straight or Heterosexual Spiritual care concerns: No Anes - Eval Final PreProcedure Day of Procedure 03/07/21 14:45 Patient weight: normal Heart: regular rate and rhythm Lungs: decreased breath sounds Airway: Mallampati scale class II Neurological: other (alert) Last oral intake: >/= 8 hours ASA classification: III Emergent: no Anesthetic plan: proceed Anesthesia type and monitoring: general ETT and standard monitoring Informed Consent: The patient's anesthetic plan and its attendant risks and benefits were discussed with the patient/family/POA. Questions were solicited and answers provided to the satisfaction of the patient/family/POA.
--- NOTE | 2021-03-07 14:45 | WPDHPUPDATE1 ---
History and Physical Update Update Date/Time: 03/07/21 14:45 History and Physical has been reviewed, including an updated exam of the patient. There are NO changes in the patient's condition. Risks, benefits, and alternatives have been discussed and questions answered. Patient agrees to proceed with procedure. A hemiarthroplasty for hip fracture is planned. Discussed with patients daughter and POA and she agreed to the procedure as well.
[2021-03-07] MEDS: ceFAZolin 2 GM/D5W 50 ML 2 GM/50 ML BAG IVPB (15:47)
[2021-03-07] MEDS: TRANEXAMIC ACID 1,000 MG/10 ML AMPUL 1000 MG IV PUSH ×2 (16:00→17:20)
--- NOTE | 2021-03-07 16:30 | PCRCNOTE ---
Window of time for administration has passed. See next scheduled administration.
--- NOTE | 2021-03-07 17:14 | W.PM.PROC2 ---
Procedure Note - Detailed Date of Procedure 03/07/21 Pre-op Diagnosis Left Hip Fracture Garden 3 Post-op Diagnosis same Procedure Performed Left press fit hemiarthroplasty Surgeon Colin Patrick MD Artistic Associate Veronica Anesthesia general Indications Garden 3 fem neck fx Findings Same Description of Procedure Patient was identified and brought to the operating room and placed in supine position on the operating room table. After general anesthetic the patient was sterilely prepped and draped in usual fashion. The patient had been seen positioned into the right lateral decubitus with an axillary roll. She was held in this position with pegs on a pegboard. All bony prominences were well padded. Care was taken to secure the well leg. The operative left hip was appropriately mobile to perform the procedure. A surgical time in and time-out had been performed and we confirmed this was the correct patient and the correct side that all the equipment necessary for the proposed procedure was available. She had received appropriate IV antibiotics as per the protocol. All of the operating room staff concurred. I then outlined a posterior approach. Ten blade scalpel was used and the incision was made in a curvilinear fashion over the posterior 1/3 of the greater trochanter. This was taken sharply through the skin subcutaneous dissection was blunt down to the level of the external fascia of the gluteus and the fascia arnoldo. Fascia arnoldo was then incised coincident with the incision. Surgeon's finger was used to palpate the gluteus ethel insertion posterior to the incision. Once this was confirmed the gluteus ethel muscle was split and a Charnley C retractor was used to expose the posterior structures of the hip. Hemostasis was obtained throughout with electrocautery. The abductor tendons were then identified and elevated. A Kober retractor was utilized around the anterior aspect of the femoral neck. The piriformis was identified intact. The piriformis was sharply dissected from the piriformis fossa. The external aspect of the capsule was identified. And this was T'd in the edges of the T'd portion were tagged. This allowed exposure of the femoral neck fracture. The cut end of the femoral neck and femoral hip ball were identified and a powered corkscrew was placed into the femoral head. The femoral head was then removed. It was measured on the back table. It was found to be 46 mm. The ligamentum was removed from the acetabulum with Bovie electrocautery. A femoral neck cut was made 1 fingers breath above the lesser. The angle was determined with the guide. A Vikram was used to find the canal and then the T-handled canal finer was followed expanding the canal. Sequential broaches were used up to a 5. The neck was coplaned with the 5. Trial reduction was then performed with the 46 mm head which had been used to size the acetabulum and found to be the correct sized implant. The 0 neck length was used. The leg lengths were equal. I was able to get full extension. I was able to get flexion past 90?. Abduction to 45?. Internal rotation was more than 45? and the hip was still stable. I was pleased with these implants and we implanted the 5. Femoral component. We determined that the 0 neck length and the 46 where the correct implants and these were applied. Once again the same criteria was utilized and the implant was in a good position and the femoral length relationships were restored. Once this was accomplished we copiously irrigated as we had done sequentially throughout the exposure. I then closed the external capsule with 2. Ethibond suture in a running fashion. I then made drill holes in the greater trochanter 2 holes were made. The tag stitches from the piriformis and the tag stitches from the capsule were brought through the drill holes and tied. This repaired the posterior capsule and external rotators. The Charnley C retractor was removed it humphries
--- NOTE | 2021-03-07 17:41 | PM.PNORT ---
Subjective Subjective Date/Time Seen: 03/07/21 17:41 Objective Data Vital Signs Vital Signs: Vital Signs - 24 hr 03/06/21 21:10 03/06/21 22:00 03/07/21 05:50 Temperature 36.6 C 36.8 C Pulse Rate 86 85 Respiratory Rate 16 16 Blood Pressure 137/40 L 159/55 H Pulse Oximetry 94 93 92 03/07/21 08:50 03/07/21 14:05 03/07/21 14:21 Temperature 37.1 C 37.0 C 36.4 C L Pulse Rate 82 86 87 Respiratory Rate 16 14 20 Blood Pressure 177/59 H 159/49 H 185/62 H Pulse Oximetry 92 93 93 Intake/Output Intake/Output: Intake & Output 03/04/21 03/05/21 03/06/21 03/07/21 23:59 23:59 23:59 23:59 Intake Total 680 1250 250 Output Total 154 947 1201 1600 Balance -200 -120 250 -1350 Meds/Results Medications: Active Medications Generic Name Dose Route Start Last Admin Trade Name Freq PRN Reason Stop Dose Admin Acetaminophen 650 mg 03/05/21 15:28 Acetaminophen 325 Mg Tablet PO Q6H PRN Mild Pain (1-3) or Fever Hydrocodone Bitart/Acetaminophen 1 tab 03/05/21 15:27 03/06/21 16:23 Hydrocodone/Acetaminophen (*Crx) 5-325 Mg Tablet PO 1 tab Q4H PRN Administration Pain Rated 4-6 Hydrocodone Bitart/Acetaminophen 1 tab 03/05/21 15:28 Hydrocodone/Acetaminophen (*Crx) 7.5-325 Mg Tablet PO Q4H PRN Pain Rated 7-10 Albuterol 2 puff 03/05/21 16:00 03/07/21 16:29 Albuterol Sulfate (*Sp) Aerosol 1 Puff INHALATION Not Given QIDRT NOEMÍ Amlodipine Besylate 10 mg 03/05/21 09:00 03/07/21 08:54 Amlodipine Besylate 5 Mg Tablet PO 10 mg DAILY NOEMÍ Administration Atorvastatin Calcium 20 mg 03/05/21 09:00 03/07/21 08:54 Atorvastatin 20 Mg Tablet PO 20 mg DAILY NOEMÍ Administration Docusate Sodium 100 mg 03/05/21 21:00 03/07/21 08:54 Docusate Sodium 100 Mg Capsule PO 100 mg Q12HR NOEMÍ Administration Docusate Sodium 100 mg 03/07/21 17:00 Docusate Sodium 100 Mg Capsule PO BID [facility] Enoxaparin Sodium 30 mg 03/05/21 13:00 03/06/21 09:10 Enoxaparin 30 Mg/0.3 Ml Syringe SUB-Q 30 mg DAILY NOEMÍ Administration Enoxaparin Sodium 40 mg 03/08/21 09:00 Enoxaparin 40 Mg/0.4 Ml Syringe SUB-Q DAILY [facility] Fentanyl Citrate 25 mcg 03/07/21 14:46 Fentanyl Citrate Inj (*Crx) 100 Mcg/2 Ml Vial IV PUSH Q2M PRN Pain Lactated Ringer's 1,000 mls @ 30 mls/hr 03/07/21 14:50 03/07/21 14:20 Lr - Lactated Ringers Iv IV CONT 30 mls/hr .Q24H NOEMÍ Administration Lactated Ringer's 1,000 mls @ 30 mls/hr 03/07/21 14:50 Lr - Lactated Ringers Iv IV CONT .Q24H [facility] Potassium Chloride/Dextrose/Sod Cl 1,000 mls @ 80 mls/hr 03/07/21 14:55 Kcl 20 Meq/D5/0.45% Sod Chl IV CONT .[id number] [facility] Lisinopril 20 mg 03/05/21 09:00 03/07/21 08:54 Lisinopril 20 Mg Tablet PO 20 mg BID NOEMÍ Administration Magnesium Hydroxide 30 ml 03/07/21 14:51 Magnesium Hydroxide Susp 30 Ml Udc PO BID PRN Constipation Methylprednisolone 4 mg 03/06/21 06:30 03/07/21 12:12 Methylprednisolone (Medrol) Dosepack 4 Mg Tablets PO 03/11/21 07:29 4 mg 0630,1200,1700 [facility] Administration Taper Metoprolol Succinate 150 mg 03/05/21 09:00 03/07/21 08:54 Metoprolol Succinate Ext Rel 50 Mg Tabcr PO 150 mg DAILY [facility] Administration Naloxone HCl 0.1 mg 03/07/21 14:51 Naloxone Hcl 0.4 Mg/Ml Vial IV PUSH Q2M PRN Opiate Reversal Ondansetron HCl 4 mg 03/04/21 22:37 03/05/21 03:36 Ondansetron Inj 4 Mg/2 Ml Vial IV PUSH 4 mg Q4H PRN Administration Nausea Ondansetron HCl 4 mg 03/07/21 14:46 Ondansetron Inj 4 Mg/2 Ml Vial IV PUSH ONCE PRN Nausea Oxcarbazepine 300 mg 03/05/21 09:00 03/07/21 08:54 Oxcarbazepine 300 Mg Tablet PO 300 mg BID NOEMÍ Administration Radiology Results: ITS Impressions Hip/Pelvis X-Ray 03/04/21 19:34 IMPRESSION: 1. Subcapital fracture of left femoral neck. Chest X-Ray 03/05/21 15:44 IMPRESSION: 1. No acute cardiopulmon
[2021-03-07] MEDS: fentaNYL CITRATE INJ (*CRX) 100 MCG/2 ML VIAL 25 MCG IV PUSH ×4 (18:18→18:41)
[2021-03-07] MEDS: ONDANSETRON INJ 4 MG/2 ML VIAL IV PUSH ×2 (18:55→23:07)
[2021-03-07] MEDS: HYDROcodone/acetaminophen (*CRX) 7.5-325 MG TABLET 1 TAB PO ×2 (19:29→23:29)
[2021-03-07] MEDS: KCL 20 MEQ/D5/0.45% SOD CHL 1,000 ML 80 ML IV CONT (19:35)
[2021-03-07] MEDS: HYDROcodone/acetaminophen (*CRX) 5-325 MG TABLET 1 TAB PO (21:27)
[2021-03-08] VITALS (13 sets, daily range): BP systolic 130–180; BP diastolic 46–86; PULSE 76–96; RESP 18–20; TEMP 36–37.1; O2SAT 90–98
--- NOTE | 2021-03-08 00:20 | PCRCNOTE ---
Pt was sick 03/07/21 @ 9172, so RN will instruct I.S.
[2021-03-08] MEDS: methylPREDNISolone (MEDROL) DOSEPACK 4 MG TABLETS PO ×4 (06:31→20:23)
[2021-03-08 06:50] LABS: Basophils Percent Auto 0.1 % (0.2-1.2); Eosinophils Percent Auto 0.1 % (0-4.4); Hematocrit 32.3 % (37.0-47.0); Hemoglobin 10.2 g/dL (12.0-15.0); Immature Granulocyte Percent A 0.7 % (0-0.5); Lymphocytes Absolute Auto 0.83 K/mm3 (0.9-3.2); Lymphocytes Percent Auto 6.2 % (18.3-44.2); Mean Corpuscular HGB Conc 31.6 g/dl (32-36); Mean Corpuscular Hemoglobin 29.1 pg (26-34); Mean Corpuscular Volume 92.3 fl (80-100); Mean Platelet Volume 11.2 fl (7.4-10.4); Monocytes Percent Auto 7.3 % (2.6-8.5); Neutrophils Absolute Auto 11.5 K/mm3 (1.3-6.7); Neutrophils Percent Auto 85.6 % (45.5-73.1); Platelet Count Result 206 k/mm3 (150-375); Red Cell Distribution Width 13.9 % (11.5-14.5); White Blood Count 13.5 K/mm3 (4.5-10.0)
[2021-03-08 07:01] LABS: Anion Gap 8 mmol/L (8-16); Blood Urea Nitrogen 34 mg/dL (7-17); Carbon Dioxide 20 mmol/L (22-30); Chloride 108 mmol/L (98-107); Estimated CRCL calculation 19 ml/min; Estimated Glomerular Filt Rate 33; Glucose 156 mg/dL (65-110); Potassium 4.8 mmol/L (3.4-5.0); Sodium 136 mmol/L (137-145)
[2021-03-08] MEDS: ONDANSETRON INJ 4 MG/2 ML VIAL IV PUSH (08:29)
[2021-03-08] MEDS: ALBUTEROL SULFATE (*SP) AEROSOL 1 PUFF 2 PUFF INHALATION ×4 (09:14→20:32)
[2021-03-08] MEDS: lisinopriL 20 MG TABLET PO ×2 (09:47→17:02)
[2021-03-08] MEDS: ATORVASTATIN 20 MG TABLET PO (09:47)
[2021-03-08] MEDS: ENOXAPARIN 30 MG/0.3 ML SYRINGE SUB-Q (09:47)
[2021-03-08] MEDS: amLODIPine BESYLATE 5 MG TABLET 10 MG PO (09:47)
[2021-03-08] MEDS: DOCUSATE SODIUM 100 MG CAPSULE PO ×2 (09:47→17:02)
[2021-03-08] MEDS: OXcarbazepine 300 MG TABLET PO ×2 (09:47→17:03)
[2021-03-08] MEDS: METOPROLOL SUCCINATE EXT REL 50 MG TABCR 150 MG PO (09:47)
[2021-03-08] MEDS: KCL 20 MEQ/D5/0.45% SOD CHL 1,000 ML 80 ML IV CONT (09:48)
[2021-03-08] MEDS: MAGNESIUM HYDROXIDE SUSP 30 ML UDC PO (09:53)
--- NOTE | 2021-03-08 10:24 | P.PNAN_ITS ---
Anes - Prog Note Post-Op Date/Time: 03/08/21 10:24 Cardiovascular status: normal Respiratory status: normal Airway patency: baseline Mental status: baseline Post-Op hydration status: normal Vital Signs: Last Vital Signs Temp 37.1 C 03/08/21 09:56 Pulse 83 03/08/21 09:56 Resp 20 03/08/21 09:56 BP 138/47 L 03/08/21 09:56 Pulse Ox 90 03/08/21 09:56 Pain Score (VAS): 2 I/O: Intake & Output 03/07/21 03/08/21 03/08/21 23:59 07:59 15:59 Intake Total 330 192 5472 Output Total 1200 500 Balance -1000 -380 1090 Laboratory Tests 03/08/21 06:31 03/08/21 06:30 03/08/21 03/08/21 06:30 06:31 WBC 13.5 H RBC 3.50 L Hgb 10.2 L Hct 32.3 L MCV 92.3 MCH 29.1 MCHC 31.6 L RDW 13.9 Plt Count 206 MPV 11.2 H Immature Gran % (Auto) 0.7 H Neut % (Auto) 85.6 H Lymph % (Auto) 6.2 L [place] % (Auto) 7.3 Eos % (Auto) 0.1 Baso % (Auto) 0.1 L Lymph # (Auto) 0.83 L [place] # (Auto) 1.0 H Eos # (Auto) 0.0 Baso # (Auto) 0.0 Abs Immat Gran (auto) 0.10 H Absolute Neuts (auto) 11.5 H Absolute Nucleated RBC 0.0 Nucleated RBC % 0.0 Sodium 136 L Potassium 4.8 Chloride 108 H Carbon Dioxide 20 L Anion Gap 8 BUN 34 H Creatinine 1.50 H Estim Creat Clear Calc 19 Estimated GFR 33 L Glucose 156 H Calcium 8.0 L Post-procedural complaints: none Patient Feedback: Patient satisfied with anesthetic care.
[2021-03-08] MEDS: HYDROcodone/acetaminophen (*CRX) 5-325 MG TABLET 1 TAB PO ×2 (10:40→17:07)
--- NOTE | 2021-03-08 11:07 | PM.IMPN ---
Progress Note: A&P Assessment and Plan (1) Subcapital fracture of left femur: Code(s): S72.012A - Unspecified intracapsular fracture of left femur, initial encounter for closed fracture Status: Acute Assessment and Plan: Patient is an 85-year-old woman with a history of CVA, diet-controlled diabetes, hypercholesterolemia, hypertension, who presented emergency room after sustaining a fall while outside. The patient states she was in her yd throwing out some chicken bones when she slipped and fell on her left hip. She was unable to get up and had to yell at her neighbor for help. She was down on the ground for about 30 minutes but denies any head trauma, loss of consciousness. Initial labs showed elevated blood pressure 150/47, heart rate 73, afebrile, normal oxygenation on room air. Initial labs showed slight leukocytosis at 15,000, elevated neutrophils at 86%, potassium elevated slightly at 5.2, creatinine appears to be at baseline at 1.4, BUN 53, glucose 145. Hip and pelvis x-ray showed subcapital fracture of the left femoral neck. Chest x-ray showed no acute cardiopulmonary disease. Urinalysis showed no acute signs of infection. She was admitted into the hospital with a consult to Orthopedic surgery for further evaluation of her hip fracture. Orthopedic surgeon Dr. Patrick preformed left press fit hemiarthroplasty 03/07/21 (POD#1) Continue p.r.n. pain control DVT prophylaxis per surgery with Lovenox daily PT/OT Continue monitoring. Appreciate Ortho does input. (2) Acute respiratory failure with hypoxia: Code(s): J96.01 - Acute respiratory failure with hypoxia Status: Acute Assessment and Plan: I was called by the nurse on 03/05/2021 for the patient's oxygen saturations being hypoxic at 86%. The patient had been given 4 mg of morphine for her 10 at 10 pain a few hours prior. The patient also had diffuse wheezing throughout both lung myles. The patient was otherwise feeling asymptomatic without any shortness of breath, wheezing or cough. Chest x-ray at bedside showed no acute cardiopulmonary disease Believe her hypoxia could be related to narcotic use and decreased respiratory drive verses wheezing from a long history of smoking and she still continues to smoke 1 pack per day. I scheduled albuterol inhaler q.i.d. for her wheezing and started Medrol Dosepak with improvement of symptoms and resting comfortably on RA. Continue monitoring respiratory status. (3) Wheezing: Code(s): R06.2 - Wheezing Status: Acute Assessment and Plan: Long history of smoking and still smokes 1 pack per day. Probably has underlying COPD. Not on any inhalers at home. (4) Diabetes: Code(s): E11.9 - Type 2 diabetes mellitus without complications Status: Inactive Assessment and Plan: Apparently diet controlled on no meds. Serum glucose this morning 156, hemoglobin A1c is 5.7%. Will hold off on glucose testing at this time. (5) Hypercholesteremia: Code(s): E78.00 - Pure hypercholesterolemia, unspecified Status: Inactive Assessment and Plan: Continue statin (6) Hypertension: Code(s): I10 - Essential (primary) hypertension Status: Inactive Assessment and Plan: Blood pressure this morning was 138/47. Stable. Will continue on lisinopril and metoprolol at this time. Continue monitoring to make adjustments if needed. (7) CVA (cerebral vascular accident): Code(s): I63.9 - Cerebral infarction, unspecified Status: Inactive Assessment and Plan: Patient is on Plavix, which is being held until restarted by Ortho post-op She denies any history of atri
[2021-03-08] MEDS: HYDROcodone/acetaminophen (*CRX) 7.5-325 MG TABLET 1 TAB PO (20:33)
[2021-03-08 21:20] LABS: Glucose Point of Care 164 mg/dl (65-105)
[2021-03-09] VITALS (7 sets, daily range): BP systolic 153–164; BP diastolic 50–82; PULSE 79–93; RESP 16–20; TEMP 36.1–36.6; O2SAT 82–93
[2021-03-09] MEDS: methylPREDNISolone (MEDROL) DOSEPACK 4 MG TABLETS PO ×3 (05:52→20:09)
[2021-03-09 06:14] LABS: Basophils Percent Auto 0.2 % (0.2-1.2); Eosinophils Absolute Auto 0.2 K/mm3 (0-0.3); Eosinophils Percent Auto 1.9 % (0-4.4); Hematocrit 29.9 % (37.0-47.0); Hemoglobin 9.6 g/dL (12.0-15.0); Immature Granulocyte Absolute 0.04 K/mm3 (0.00-0.031); Immature Granulocyte Percent A 0.4 % (0-0.5); Lymphocytes Absolute Auto 0.89 K/mm3 (0.9-3.2); Lymphocytes Percent Auto 8.4 % (18.3-44.2); Mean Corpuscular HGB Conc 32.1 g/dl (32-36); Mean Corpuscular Hemoglobin 29.5 pg (26-34); Mean Platelet Volume 11.3 fl (7.4-10.4); Monocytes Absolute Auto 0.9 K/mm3 (0.1-0.6); Monocytes Percent Auto 8.9 % (2.6-8.5); Neutrophils Absolute Auto 8.5 K/mm3 (1.3-6.7); Neutrophils Percent Auto 80.2 % (45.5-73.1); Platelet Count Result 191 k/mm3 (150-375); Red Blood Count 3.25 M/mm3 (4.2-5.4); White Blood Count 10.6 K/mm3 (4.5-10.0)
[2021-03-09 06:27] LABS: Anion Gap 4 mmol/L (8-16); Blood Urea Nitrogen 36 mg/dL (7-17); Carbon Dioxide 24 mmol/L (22-30); Chloride 106 mmol/L (98-107); Estimated CRCL calculation 21 ml/min; Estimated Glomerular Filt Rate 36; Glucose 122 mg/dL (65-110); Sodium 134 mmol/L (137-145)
[2021-03-09 08:14] LABS: Glucose Point of Care 158 mg/dl (65-105)
[2021-03-09] MEDS: ALBUTEROL SULFATE (*SP) AEROSOL 1 PUFF 2 PUFF INHALATION ×4 (09:15→21:59)
--- NOTE | 2021-03-09 09:33 | PM.IMPN ---
Progress Note: A&P Assessment and Plan (1) Subcapital fracture of left femur: Code(s): S72.012A - Unspecified intracapsular fracture of left femur, initial encounter for closed fracture Status: Acute Assessment and Plan: Patient is an 85-year-old woman with a history of CVA, diet-controlled diabetes, hypercholesterolemia, hypertension, who presented emergency room after sustaining a fall while outside. The patient states she was in her yd throwing out some chicken bones when she slipped and fell on her left hip. She was unable to get up and had to yell at her neighbor for help. She was down on the ground for about 30 minutes but denies any head trauma, loss of consciousness. Initial labs showed elevated blood pressure 150/47, heart rate 73, afebrile, normal oxygenation on room air. Initial labs showed slight leukocytosis at 15,000, elevated neutrophils at 86%, potassium elevated slightly at 5.2, creatinine appears to be at baseline at 1.4, BUN 53, glucose 145. Hip and pelvis x-ray showed subcapital fracture of the left femoral neck. Chest x-ray showed no acute cardiopulmonary disease. Urinalysis showed no acute signs of infection. She was admitted into the hospital with a consult to Orthopedic surgery for further evaluation of her hip fracture. Orthopedic surgeon Dr. Patrick preformed left press fit hemiarthroplasty 03/07/21 (POD#2) Continue p.r.n. pain control DVT prophylaxis per othro surgery with Lovenox daily PT/OT Continue monitoring. Appreciate Ortho does input. (2) Acute respiratory failure with hypoxia: Code(s): J96.01 - Acute respiratory failure with hypoxia Status: Acute Assessment and Plan: I was called by the nurse on 03/05/2021 for the patient's oxygen saturations being hypoxic at 86%. The patient had been given 4 mg of morphine for her 10 at 10 pain a few hours prior. The patient also had diffuse wheezing throughout both lung myles. The patient was otherwise feeling asymptomatic without any shortness of breath, wheezing or cough. Chest x-ray at bedside showed no acute cardiopulmonary disease Believe her hypoxia could be related to narcotic use and decreased respiratory drive verses wheezing from a long history of smoking and she still continues to smoke 1 pack per day. I scheduled albuterol inhaler q.i.d. for her wheezing and started Medrol Dosepak with improvement of symptoms 03/09/21: she has been resting comfortably on RA. Continue monitoring respiratory status. (3) Wheezing: Code(s): R06.2 - Wheezing Status: Acute Assessment and Plan: Long history of smoking and still smokes 1 pack per day. Probably has underlying COPD. Not on any inhalers at home. Still wheezing with slight cough today, will get CXR to rule out pneumonia, otherwise labs improving and she denies SOB. (4) Diabetes: Code(s): E11.9 - Type 2 diabetes mellitus without complications Status: Inactive Assessment and Plan: Apparently diet controlled on no meds. Serum glucose this morning 122, hemoglobin A1c is 5.7%. Will hold off on glucose testing at this time. (5) Hypercholesteremia: Code(s): E78.00 - Pure hypercholesterolemia, unspecified Status: Inactive Assessment and Plan: Continue statin (6) Hypertension: Code(s): I10 - Essential (primary) hypertension Status: Inactive Assessment and Plan: Blood pressure this morning was 164/78, elevated prior to home medications being given. Could be secondary to pain. Continue on lisinopril and metoprolol at this time. Continue monitoring to make adjustments if needed. (7) CVA (cerebral vascular accident):
[2021-03-09] MEDS: DOCUSATE SODIUM 100 MG CAPSULE PO ×2 (09:48→18:17)
[2021-03-09] MEDS: METOPROLOL SUCCINATE EXT REL 50 MG TABCR 150 MG PO (09:48)
[2021-03-09] MEDS: OXcarbazepine 300 MG TABLET PO ×2 (09:48→18:20)
[2021-03-09] MEDS: PANTOPRAZOLE 40 MG TABLET PO ×2 (09:48→20:09)
[2021-03-09] MEDS: ATORVASTATIN 20 MG TABLET PO (09:49)
[2021-03-09] MEDS: lisinopriL 20 MG TABLET PO ×2 (09:49→18:17)
[2021-03-09] MEDS: ENOXAPARIN 30 MG/0.3 ML SYRINGE SUB-Q (09:49)
[2021-03-09] MEDS: amLODIPine BESYLATE 5 MG TABLET 10 MG PO (09:49)
[2021-03-09 12:14] LABS: Glucose Point of Care 102 mg/dl (65-105)
[2021-03-09 17:24] LABS: Glucose Point of Care 118 mg/dl (65-105)
[2021-03-09] MEDS: MAGNESIUM HYDROXIDE SUSP 30 ML UDC PO (20:14)
[2021-03-09] MEDS: BISACODYL 10 MG SUPPOSITORY RECTAL (20:15)
[2021-03-09 22:26] LABS: Glucose Point of Care 148 mg/dl (65-105)
[2021-03-10] VITALS (8 sets, daily range): BP systolic 154–166; BP diastolic 52–56; PULSE 80–96; RESP 16–20; TEMP 36.2–37.2; O2SAT 92–95
[2021-03-10 06:03] LABS: Basophils Percent Auto 0.2 % (0.2-1.2); Eosinophils Absolute Auto 0.1 K/mm3 (0-0.3); Eosinophils Percent Auto 0.9 % (0-4.4); Hematocrit 29.5 % (37.0-47.0); Hemoglobin 9.4 g/dL (12.0-15.0); Immature Granulocyte Absolute 0.05 K/mm3 (0.00-0.031); Immature Granulocyte Percent A 0.5 % (0-0.5); Lymphocytes Absolute Auto 1.26 K/mm3 (0.9-3.2); Lymphocytes Percent Auto 13.6 % (18.3-44.2); Mean Corpuscular HGB Conc 31.9 g/dl (32-36); Mean Corpuscular Hemoglobin 28.8 pg (26-34); Mean Corpuscular Volume 90.5 fl (80-100); Mean Platelet Volume 11.1 fl (7.4-10.4); Monocytes Absolute Auto 0.9 K/mm3 (0.1-0.6); Monocytes Percent Auto 9.5 % (2.6-8.5); Neutrophils Percent Auto 75.3 % (45.5-73.1); Platelet Count Result 225 k/mm3 (150-375); Red Blood Count 3.26 M/mm3 (4.2-5.4); Red Cell Distribution Width 13.5 % (11.5-14.5); White Blood Count 9.2 K/mm3 (4.5-10.0)
[2021-03-10] MEDS: methylPREDNISolone (MEDROL) DOSEPACK 4 MG TABLETS PO ×2 (06:41→20:38)
[2021-03-10 06:43] LABS: Anion Gap 6 mmol/L (8-16); Blood Urea Nitrogen 37 mg/dL (7-17); Carbon Dioxide 24 mmol/L (22-30); Chloride 107 mmol/L (98-107); Estimated CRCL calculation 19 ml/min; Estimated Glomerular Filt Rate 33; Glucose 106 mg/dL (65-110); Potassium 4.8 mmol/L (3.4-5.0); Sodium 137 mmol/L (137-145)
[2021-03-10] MEDS: ATORVASTATIN 20 MG TABLET PO (08:24)
[2021-03-10] MEDS: amLODIPine BESYLATE 5 MG TABLET 10 MG PO (08:24)
[2021-03-10] MEDS: DOCUSATE SODIUM 100 MG CAPSULE PO ×2 (08:25→17:21)
[2021-03-10] MEDS: METOPROLOL SUCCINATE EXT REL 50 MG TABCR 150 MG PO (08:25)
[2021-03-10] MEDS: lisinopriL 20 MG TABLET PO ×2 (08:27→17:21)
[2021-03-10] MEDS: OXcarbazepine 300 MG TABLET PO ×2 (08:27→17:21)
[2021-03-10] MEDS: PANTOPRAZOLE 40 MG TABLET PO ×2 (08:27→20:38)
[2021-03-10] MEDS: ENOXAPARIN 30 MG/0.3 ML SYRINGE SUB-Q (08:27)
--- NOTE | 2021-03-10 09:09 | PCRCNOTE ---
MDI DELAYED DUE TO PT, BREAKFAST AND BEDSIDE BATH
[2021-03-10] MEDS: NICOTINE (*PBKC) 21 MG PATCH 1 PATCH TRANSDERM (09:19)
--- NOTE | 2021-03-10 10:07 | PM.PNORT ---
Progress Note: A&P Additional Plan OK for D/C to SNF WBAT LEft LE Hip precautions F/U with Leb within 2 weeks of d/c Lovenox for DVT at SNF upon d/c from SNF switch to ASA 325mg q D Subjective Subjective Date/Time Seen: 03/10/21 10:07 Exam Extrem: Other: Left Hip Dressing C+D Thigh supple NV intact distally calves supple and NT mobilizing well understands hip precautions pain well controled Objective Data Vital Signs Vital Signs: Vital Signs - 24 hr 03/09/21 14:00 03/09/21 21:10 03/09/21 21:59 Temperature 36.6 C 36.5 C Pulse Rate 80 80 87 Respiratory Rate 18 20 16 Blood Pressure 154/82 H 164/60 H Pulse Oximetry 92 93 03/10/21 01:36 03/10/21 05:25 03/10/21 08:25 Temperature 36.9 C 36.2 C L Pulse Rate 89 83 91 Respiratory Rate 18 20 Blood Pressure 154/56 H 154/54 H Pulse Oximetry 92 95 Intake/Output Intake/Output: Intake & Output 03/07/21 03/08/21 03/09/21 03/10/21 23:59 23:59 23:59 23:59 Intake Total 450 2420 1200 440 Output Total 1600 1150 1000 300 Balance -1150 1270 200 140 Meds/Results Medications: Active Medications Generic Name Dose Route Start Last Admin Trade Name Freq PRN Reason Stop Dose Admin Acetaminophen 650 mg 03/05/21 15:28 Acetaminophen 325 Mg Tablet PO Q6H PRN Mild Pain (1-3) or Fever Hydrocodone Bitart/Acetaminophen 1 tab 03/05/21 15:27 03/08/21 17:07 Hydrocodone/Acetaminophen (*Crx) 5-325 Mg Tablet PO 1 tab Q4H PRN Administration Pain Rated 4-6 Hydrocodone Bitart/Acetaminophen 1 tab 03/05/21 15:28 03/08/21 20:33 Hydrocodone/Acetaminophen (*Crx) 7.5-325 Mg Tablet PO 1 tab Q4H PRN Administration Pain Rated 7-10 Albuterol 2 puff 03/05/21 16:00 03/09/21 21:59 Albuterol Sulfate (*Sp) Aerosol 1 Puff INHALATION 2 puff QIDRT NOEMÍ Administration Amlodipine Besylate 10 mg 03/05/21 09:00 03/10/21 08:24 Amlodipine Besylate 5 Mg Tablet PO 10 mg DAILY NOEMÍ Administration Atorvastatin Calcium 20 mg 03/05/21 09:00 03/10/21 08:24 Atorvastatin 20 Mg Tablet PO 20 mg DAILY NOEMÍ Administration Bisacodyl 10 mg 03/09/21 20:03 Bisacodyl 10 Mg Suppository RECTAL QAM PRN Constipation Calcium Carbonate 200 mg 03/09/21 08:55 Calcium Carbonate (Tums) 500 Mg (200 Mg Elemental) PO Q6H PRN Indigestion Docusate Sodium 100 mg 03/07/21 17:00 03/10/21 08:25 Docusate Sodium 100 Mg Capsule PO 100 mg BID NOEMÍ Administration Enoxaparin Sodium 30 mg 03/08/21 09:00 03/10/21 08:27 Enoxaparin 30 Mg/0.3 Ml Syringe SUB-Q 30 mg DAILY NOEMÍ Administration Lisinopril 20 mg 03/05/21 09:00 03/10/21 08:27 Lisinopril 20 Mg Tablet PO 20 mg BID NOEMÍ Administration Magnesium Hydroxide 30 ml 03/07/21 14:51 03/09/21 20:14 Magnesium Hydroxide Susp 30 Ml Udc PO 30 ml BID PRN Administration Constipation Methylprednisolone 4 mg 03/06/21 06:30 03/10/21 06:41 Methylprednisolone (Medrol) Dosepack 4 Mg Tablets PO 03/11/21 07:29 4 mg 0630,2100 NOEMÍ Administration Taper Metoprolol Succinate 150 mg 03/05/21 09:00 03/10/21 08:25 Metoprolol Succinate Ext Rel 50 Mg Tabcr PO 150 mg DAILY [facility] Administration Morphine Sulfate 2 mg 03/07/21 23:46 Morphine Sulfate (*Crx) 2 Mg/Ml Inj IV PUSH Q1H PRN Pain Rated 7-10 Naloxone HCl 0.1 mg 03/07/21 14:51 Naloxone Hcl 0.4 Mg/Ml Vial IV PUSH Q2M PRN Opiate Reversal Nicotine 1 patch 03/10/21 09:00 03/10/21 09:19 Nicotine (*Pbkc) 21 Mg Patch TRANSDERM 1 patch QAM NOEMÍ Administration Ondansetron HCl 4 mg 03/04/21 22:37 03/08/21 08:29 Ondansetron Inj 4 Mg/2 Ml Vial IV PUSH 4 mg Q4H PRN Administration Nausea Oxcarbazepine 300 mg 03/05/21 09:00 03/10/21 08:27 Oxcarbazepine 300 Mg Tablet PO 300 mg BID NOEMÍ Administration Pantoprazole Sodium 40 mg 03/09/21 09:00 03/10/21 08:27 Pantoprazole 40 Mg Tablet PO 40 mg Q12HR NOEMÍ Admi
[2021-03-10] MEDS: CLOPIDOGREL BISULFATE 75 MG TABLET PO (10:46)
[2021-03-10] MEDS: ALBUTEROL SULFATE (*SP) AEROSOL 1 PUFF 2 PUFF INHALATION ×3 (11:36→20:03)
[2021-03-10 11:55] LABS: Glucose Point of Care 110 mg/dl (65-105)
--- NOTE | 2021-03-10 14:43 | PM.IMPN ---
Progress Note: A&P Assessment and Plan (1) Subcapital fracture of left femur: Code(s): S72.012A - Unspecified intracapsular fracture of left femur, initial encounter for closed fracture Status: Acute Assessment and Plan: Patient is an 85-year-old woman with a history of CVA, diet-controlled diabetes, hypercholesterolemia, hypertension, who presented emergency room after sustaining a fall while outside. The patient states she was in her yd throwing out some chicken bones when she slipped and fell on her left hip. She was unable to get up and had to yell at her neighbor for help. She was down on the ground for about 30 minutes but denies any head trauma, loss of consciousness. Initial labs showed elevated blood pressure 150/47, heart rate 73, afebrile, normal oxygenation on room air. Initial labs showed slight leukocytosis at 15,000, elevated neutrophils at 86%, potassium elevated slightly at 5.2, creatinine appears to be at baseline at 1.4, BUN 53, glucose 145. Hip and pelvis x-ray showed subcapital fracture of the left femoral neck. Chest x-ray showed no acute cardiopulmonary disease. Urinalysis showed no acute signs of infection. She was admitted into the hospital with a consult to Orthopedic surgery for further evaluation of her hip fracture. Orthopedic surgeon Dr. Patrick preformed left press fit hemiarthroplasty 03/07/21 (POD#3) Continue p.r.n. pain control DVT prophylaxis per othro surgery with Lovenox 30mg SQ daily for 30 days once discharged to SNF, then if she goes home before 30 days she can be discharged from SNF with ASA 325 mg daily for DVT prophylaxis until 30 days is up. PT/OT Continue monitoring. Appreciate Ortho does input. (2) Acute respiratory failure with hypoxia: Code(s): J96.01 - Acute respiratory failure with hypoxia Status: Acute Assessment and Plan: I was called by the nurse on 03/05/2021 for the patient's oxygen saturations being hypoxic at 86%. The patient had been given 4 mg of morphine for her 10 at 10 pain a few hours prior. The patient also had diffuse wheezing throughout both lung myles. The patient was otherwise feeling asymptomatic without any shortness of breath, wheezing or cough. Believe her hypoxia could be related to narcotic use and decreased respiratory drive verses wheezing from a long history of smoking and she still continues to smoke 1 pack per day. Chest x-ray at bedside showed no acute cardiopulmonary disease I scheduled albuterol inhaler q.i.d. for her wheezing and started Medrol Dosepak with improvement of symptoms 03/10/21: she has been resting comfortably on RA Continue monitoring respiratory status. (3) Wheezing: Code(s): R06.2 - Wheezing Status: Acute Assessment and Plan: Long history of smoking and still smokes 1 pack per day. Probably has underlying COPD. Not on any inhalers at home. 03/09/21 CXR showing Airspace opacities at the lung bases, consistent with atelectasis versus pneumonia. Minimal wheezing on examination and slight cough. Sending sputum culture at this time. I feel it is atelectasis based on examination but if sputum changes to yellow then consider antibiotics. (4) Diabetes: Code(s): E11.9 - Type 2 diabetes mellitus without complications Status: Inactive Assessment and Plan: Apparently diet controlled on no meds. Serum glucose this morning 110, hemoglobin A1c is 5.7% Will hold off on glucose testing at this time. (5) Hypercholesteremia: Code(s): E78.00 - Pure hypercholesterolemia, unspecified Status: Inactive Assessment and Plan: Continue statin (6) Hypertension: Code(s): I10 - Essential (primary) hypertension Status: Inactive
[2021-03-10] MEDS: MELATONIN 5 MG TABLET PO (20:38)
[2021-03-11 05:18] LABS: Basophils Percent Auto 0.3 % (0.2-1.2); Eosinophils Absolute Auto 0.2 K/mm3 (0-0.3); Eosinophils Percent Auto 2.5 % (0-4.4); Hematocrit 27.1 % (37.0-47.0); Hemoglobin 8.7 g/dL (12.0-15.0); Immature Granulocyte Absolute 0.04 K/mm3 (0.00-0.031); Immature Granulocyte Percent A 0.6 % (0-0.5); Lymphocytes Absolute Auto 0.84 K/mm3 (0.9-3.2); Lymphocytes Percent Auto 11.6 % (18.3-44.2); Mean Corpuscular HGB Conc 32.1 g/dl (32-36); Mean Corpuscular Hemoglobin 29.1 pg (26-34); Mean Corpuscular Volume 90.6 fl (80-100); Mean Platelet Volume 10.6 fl (7.4-10.4); Monocytes Absolute Auto 0.7 K/mm3 (0.1-0.6); Monocytes Percent Auto 9.6 % (2.6-8.5); Neutrophils Absolute Auto 5.5 K/mm3 (1.3-6.7); Neutrophils Percent Auto 75.4 % (45.5-73.1); Platelet Count Result 229 k/mm3 (150-375); Red Blood Count 2.99 M/mm3 (4.2-5.4); Red Cell Distribution Width 13.6 % (11.5-14.5); White Blood Count 7.2 K/mm3 (4.5-10.0)
[2021-03-11 05:35] VITALS: BP 155/48; PULSE 98; RESP 20; TEMP 37.2; O2SAT 96
[2021-03-11 05:42] LABS: Anion Gap 6 mmol/L (8-16); Blood Urea Nitrogen 36 mg/dL (7-17); Calcium 7.9 mg/dL (8.4-10.2); Carbon Dioxide 22 mmol/L (22-30); Chloride 107 mmol/L (98-107); Estimated CRCL calculation 21 ml/min; Estimated Glomerular Filt Rate 36; Glucose 108 mg/dL (65-110); Potassium 4.4 mmol/L (3.4-5.0); Sodium 135 mmol/L (137-145)
[2021-03-11] MEDS: methylPREDNISolone (MEDROL) DOSEPACK 4 MG TABLETS PO (05:50)
--- NOTE | 2021-03-11 07:21 | PCOTNOTE ---
The OT treatment on 03/10/21 was unable to be completed due to the holiday. Will continue plan of care.
[2021-03-11] MEDS: ALBUTEROL SULFATE (*SP) AEROSOL 1 PUFF 2 PUFF INHALATION ×2 (07:56→12:21)
[2021-03-11 08:56] VITALS: PULSE 74
[2021-03-11] MEDS: DOCUSATE SODIUM 100 MG CAPSULE PO (08:56)
[2021-03-11] MEDS: ATORVASTATIN 20 MG TABLET PO (08:56)
[2021-03-11] MEDS: lisinopriL 20 MG TABLET PO (08:56)
[2021-03-11] MEDS: CLOPIDOGREL BISULFATE 75 MG TABLET PO (08:56)
[2021-03-11] MEDS: OXcarbazepine 300 MG TABLET PO (08:56)
[2021-03-11] MEDS: PANTOPRAZOLE 40 MG TABLET PO (08:56)
[2021-03-11] MEDS: METOPROLOL SUCCINATE EXT REL 50 MG TABCR 150 MG PO (08:56)
[2021-03-11] MEDS: amLODIPine BESYLATE 5 MG TABLET 10 MG PO (08:56)
[2021-03-11] MEDS: ENOXAPARIN 30 MG/0.3 ML SYRINGE SUB-Q (08:57)
[2021-03-11] MEDS: NICOTINE (*PBKC) 21 MG PATCH 1 PATCH TRANSDERM (08:58)
[2021-03-11] MEDS: HYDROcodone/acetaminophen (*CRX) 7.5-325 MG TABLET 1 TAB PO (08:58)
--- NOTE | 2021-03-11 10:52 | PM.DS ---
DS: Admitting Diagnosis Discharge Date 03/11/2021 Admitting Diagnosis Hip fracture DS: Discharge Diagnosis Discharge Diagnosis (1) Subcapital fracture of left femur: Code(s): S72.012A - Unspecified intracapsular fracture of left femur, initial encounter for closed fracture Status: Acute Assessment and Plan: Patient is an 85-year-old woman with a history of CVA, diet-controlled diabetes, hypercholesterolemia, hypertension, who presented emergency room after sustaining a fall while outside. The patient states she was in her yard throwing out some chicken bones when she slipped and fell on her left hip. She was unable to get up and had to yell at her neighbor for help. She was down on the ground for about 30 minutes but denies any head trauma, loss of consciousness. Initial labs showed elevated blood pressure 150/47, heart rate 73, afebrile, normal oxygenation on room air. Initial labs showed slight leukocytosis at 15,000, elevated neutrophils at 86%, potassium elevated slightly at 5.2, creatinine appears to be at baseline at 1.4, BUN 53, glucose 145. Hip and pelvis x-ray showed subcapital fracture of the left femoral neck. Chest x-ray showed no acute cardiopulmonary disease. Urinalysis showed no acute signs of infection. She was admitted into the hospital with a consult to Orthopedic surgery for further evaluation of her hip fracture. Orthopedic surgeon Dr. Patrick preformed left press fit hemiarthroplasty 03/07/21 Continue p.r.n. pain control. [place] p.r.n. at discharge for pain control. DVT prophylaxis per othro surgery with Lovenox 30mg SQ daily for 30 days once discharged to SNF, then if she goes home before 30 days she can be discharged from SNF with ASA 325 mg daily for DVT prophylaxis until 30 days is up. PT/OT Continue monitoring. Appreciate Ortho does input. (2) Acute respiratory failure with hypoxia: Code(s): J96.01 - Acute respiratory failure with hypoxia Status: Acute Assessment and Plan: She had an episode of oxygen desaturation up to 86% on 03/05/2021. Patient was given 4 mg of morphine. Years prior to this episode. She was noted to have diffuse wheezing throughout the lung myles during that episode. She denied any shortness of breath we wheezing or per patient. She was given breathing treatment which improved her wheezing and oxygenation. Chest x-ray at bedside showed no acute cardiopulmonary disease. She was started on scheduled albuterol inhaler q.i.d. and started Medrol Dosepak with improvement of the symptoms. She was off oxygen following that throughout the course of hospitalization. Will be discharged on albuterol inhaler p.r.n. at the time of discharge. She has a long history of smoking and is a current smoker as well. (3) Wheezing: Code(s): R06.2 - Wheezing Status: Acute Assessment and Plan: Long history of smoking and still smokes 1 pack per day. Probably has underlying COPD. Not on any inhalers at home. 03/09/21 CXR showing Airspace opacities at the lung bases, consistent with atelectasis versus pneumonia. Minimal wheezing on examination and slight cough. Sending sputum culture at this time. I feel it is atelectasis based on examination but if sputum changes to yellow then consider antibiotics. (4) Diabetes: Code(s): E11.9 - Type 2 diabetes mellitus without complications Status: Inactive Assessment and Plan: Apparently diet controlled on no meds. Serum glucose this morning 110, hemoglobin A1c is 5.7% Continue to monitor as an outpatient basis (5) Hypercholesteremia: Code(s): E78.00 - Pure hypercholesterolemia, unspecified Status: Inactive Assessment and Plan: Continue statin
--- NOTE | 2021-03-11 13:06 | PC.NURSE ---
On 03/11/21, the student, Yolanda Moreno, provided care and completed [facility] documentation on this patient. I have reviewed the student's documentation and agree with the findings.
== END 2021-03-11 12:47 | DRG 522 ==
LOC: ANHED 22:26 → ANH2MED 23:22
PROVIDERS: Physician Assistant; Specialist; Admitting Provider Internal Medicine; Emergency Provider Emergency Medicine; PCP Internal Medicine; Visit Provider Internal Medicine
PROC: 0SRS0JA Replacement of Left Hip Joint, Femoral Surface with Synthetic Substitute, Uncemented, Open Approach (ICD-10-PCS; CPT 27125; principal; 2021-03-07 14:30)
DX: S72.012A Unspecified intracapsular fracture of left femur, initial encounter for closed fracture (principal); W01.0XXA Fall on same level from slipping, tripping and stumbling without subsequent striking against object, initial encounter; I10 Essential (primary) hypertension; E78.00 Pure hypercholesterolemia, unspecified; E11.9 Type 2 diabetes mellitus without complications; J44.9 Chronic obstructive pulmonary disease, unspecified; F17.210 Nicotine dependence, cigarettes, uncomplicated; Z90.49 Acquired absence of other specified parts of digestive tract; Z86.73 Personal history of transient ischemic attack (TIA), and cerebral infarction without residual deficits; Z90.710 Acquired absence of both cervix and uterus; Z79.02 Long term (current) use of antithrombotics/antiplatelets
CPT/HCPCS: 36415; 51701; 71045; 71046; 73502; 80048; 81001; 82948; 83036; 85025; 85027; 85610; 85730; 87070; 87077; 87086; 87186; 87205; 93005; 94640; 96374; 96375; 96376; 97110; 97116; 97162; 97165; 97530; 97535; 99285; A9270; C1776; G0378; J0330; J0360; J0690; J1100; J1170; J1650; J2270; J2370; J2405; J2704; J3010; J3480; J7030; J7120

== ENCOUNTER 2021-04-04 09:13 | Emergency (ER) | payer OTHER, SELFPAY ==
[2021-04-04 09:28] VITALS: BP 133/53; PULSE 72; RESP 16; TEMP 36.5; O2SAT 98
[2021-04-04 09:35] VITALS: BP 133/53; PULSE 72; RESP 16; TEMP 36.5; O2SAT 98
[2021-04-04 09:42] VITALS: BP 121/63; PULSE 85; RESP 16; TEMP 36.7; O2SAT 98
--- NOTE | 2021-04-04 09:49 | ED.WOUNDLAC ---
HPI - Wound/Laceration General Chief Complaint: Wound/Laceration Stated Complaint: fell cut right elbow Time Seen by Provider: 04/04/21 09:36 Source: patient and RN notes reviewed Mode of arrival: ambulatory Limitations: no limitations History of Present Illness HPI narrative: Patient presents today with a laceration to her right elbow. She tripped while walking with her walker in her bathroom this morning at 815, falling near her bathtub, striking her elbow. She also, while falling, scraped her forehead on her bathroom sink. Denies any headache, loss of consciousness, dizziness or lightheadedness, nausea or vomiting, vision changes. Patient is not up-to-date on her tetanus vaccine. Related Data Home Medications Medication Instructions Recorded Confirmed amlodipine 10 mg PO DAILY 09/30/20 04/04/21 atorvastatin 20 mg PO DAILY 09/30/20 04/04/21 clopidogrel 75 mg PO DAILY 09/30/20 04/04/21 lisinopril 20 mg PO BID 09/30/20 04/04/21 metoprolol succinate 150 mg PO DAILY 09/30/20 04/04/21 oxcarbazepine 300 mg PO BID 03/04/21 04/04/21 Allergies Allergy/AdvReac Type Severity Reaction Status Date / Time Penicillins Allergy Severe Anaphylaxis Verified 04/04/21 09:23 Review of Systems Review of Systems: CONSTITUTIONAL: Denies body aches, fever, chills, or sweats. EYES: Denies visual changes, redness, or discharge. ENT: Denies rhinorrhea, congestion, sore throat, or otalgia. CARDIOVASCULAR: Denies chest pain, palpitations, or edema. RESPIRATORY: Denies cough or dyspnea. GASTROINTESTINAL: Denies abdominal pain, nausea, vomiting, or diarrhea. GENITOURINARY: Denies dysuria or hematuria. SKIN: Denies rash, itching.+ Laceration right elbow, abrasion to forehead MUSCULOSKELETAL: Denies back pain, joint pain, or myalgia. NEUROLOGIC: Denies headache, numbness, tingling, or weakness. PSYCH: Denies depression or anxiety. [facility], [facility] Past Medical History Medical History Acute respiratory failure with hypoxia Cataract Bilateral CVA (cerebral vascular accident) X4 Diabetes Controlled with diet Hypercholesteremia Hypertension Pneumonia Smoker Subcapital fracture of left femur TIA (transient ischemic attack) Surgical History Surgical History H/O: hysterectomy History of appendectomy Hx of cholecystectomy Family History Family History Other Acute alcohol abuse Acute myocardial infarction Alzheimer disease Brain aneurysm COPD (chronic obstructive pulmonary disease) Carcinoma of colon Cerebrovascular accident Diabetes mellitus Heart disease Hypertension Throat cancer Social History Social History Smoking packs per day: 1 Smoking cigarettes per day: 20.0 Years smoked: 60 Smoking pack-years: 60.00 Smoking status: Current every day smoker Tobacco type: cigarettes Second hand tobacco smoke exposure: Yes Alcohol intake: never Substance use: never Substance use type: does not use Gender identity (if verbalized by the patient): Female Sexual Orientation (if Verbalized by the Patient): Straight or Heterosexual Spiritual care concerns: No Comments At time of signature, I have reviewed and agree with nursing past medical, surgical, social and family history unless otherwise noted. Please see nursing chart for further information. There is no relevant family history pertinent to the presenting complaint Exam Narrative: GENERAL: Well-appearing, well-nourished, and in no acute distress. HEAD: Normocephalic. 1x2 cm very superficial abrasion to the midline forehead. Nontender to palpation. No crepitus or deformity noted. EYES: EOMI. PERRL. No redness or drainage. Conjunctivae normal. ENT: Mucous membranes pink and moist. NECK: Normal AROM. Supple. No
[2021-04-04] MEDS: TETANUS/DIPHTHERIA TOXOIDS ADSORB 0.5 ML VIAL (*BKC) IM (10:02)
== END 2021-04-04 10:47 | disposition home or self-care (01) ==
PROVIDERS: Emergency Provider Nurse Practitioner
DX: S51.011A Laceration without foreign body of right elbow, initial encounter (principal); W01.0XXA Fall on same level from slipping, tripping and stumbling without subsequent striking against object, initial encounter; Y93.01 Activity, walking, marching and hiking; Z23 Encounter for immunization; S00.81XA Abrasion of other part of head, initial encounter
CPT/HCPCS: 12002; 90471; 90714; 99213; G0463

== ENCOUNTER 2021-04-08 14:00 | Emergency (ER) | payer OTHER, SELFPAY ==
--- NOTE | ~2021-04-08 | XR_ITS ---
EXAMINATION: XR hip RT 2V w AP pelvis EXAM DATE: 04/08/2021 14:26 INDICATION: Fall, right hip pain. Recent left hip surgery. TECHNIQUE: Right hip frontal, 'frog leg' projections for interpretation. Frontal projection pelvis. Comparison is made to prior examination from 03/04/2021. FINDINGS: Smooth right hip femoral head contour, no radiographic evidence of avascular necrosis. There are no acute fractures or dislocations identified. There is no subcutaneous gas. There are ar terial calcifications, arteriosclerosis. Left hip arthroplasty hardware appears intact on frontal i mage. IMPRESSION: 1. Pelvis, right hip exam without acute osseous findings. 2. Left hip arthroplasty in position. Reviewed, dictated and finalized at location A.
[2021-04-08 14:10] VITALS: BP 146/81; PULSE 72; RESP 18; TEMP 37; O2SAT 99
--- NOTE | 2021-04-08 14:32 | ED.LOWEXIN ---
HPI - Extremity Injury (Lower) General Chief Complaint: Extremity Injury, Lower Stated Complaint: rt hip injury Time Seen by Provider: 04/08/21 14:40 Source: patient, family and RN notes reviewed Mode of arrival: ambulatory Limitations: no limitations History of Present Illness HPI Narrative: 85-year-old female who presents to [facility] accompanied by family member with complaints of bruising swelling and pain to her right hip. Patient was seen in clinic last week after falling at home and sustaining laceration to her right elbow which required suturing at that time. Patient did not have complaints of pain to the right hip during that visit. Denies any falls since the initial incident, right hip is swollen with bruising noted with tenderness noted on palpation of right hip. Patient is able to ambulate with steady gait using her walker. MD complaint: hip injury (right) Related Data Home Medications Medication Instructions Recorded Confirmed amlodipine 10 mg PO DAILY 09/30/20 04/04/21 atorvastatin 20 mg PO DAILY 09/30/20 04/04/21 clopidogrel 75 mg PO DAILY 09/30/20 04/04/21 lisinopril 20 mg PO BID 09/30/20 04/04/21 metoprolol succinate 150 mg PO DAILY 09/30/20 04/04/21 oxcarbazepine 300 mg PO BID 03/04/21 04/04/21 Allergies Allergy/AdvReac Type Severity Reaction Status Date / Time Penicillins Allergy Severe Anaphylaxis Verified 04/04/21 09:23 Review of Systems Review of Systems: CONSTITUTIONAL: Denies fever, chills, or sweats. EYES: Denies visual changes, redness, or discharge. ENT: Denies rhinorrhea, congestion, sore throat, or otalgia. CARDIOVASCULAR: Denies chest pain, palpitations, or edema. RESPIRATORY: Denies cough or dyspnea. GASTROINTESTINAL: Denies abdominal pain, nausea, vomiting, or diarrhea. GENITOURINARY: Denies dysuria or hematuria. SKIN: Denies rash or itching. Healing laceration to right elbow no drainage or redness noted well approximated sutures remain intact MUSCULOSKELETAL: Denies back pain, positive for right hip pain with bruising or myalgia. NEUROLOGIC: Denies headache, numbness, or weakness. PSYCHIATRIC: Denies anxiety or depression. All systems reviewed & are unremarkable except as noted in HPI and below PMFSH Past Medical History Medical History Acute respiratory failure with hypoxia Cataract Bilateral CVA (cerebral vascular accident) X4 Diabetes Controlled with diet Hypercholesteremia Hypertension Pneumonia Smoker Subcapital fracture of left femur TIA (transient ischemic attack) Surgical History Surgical History H/O: hysterectomy History of appendectomy Hx of cholecystectomy Family History Family History Other Acute alcohol abuse Acute myocardial infarction Alzheimer disease Brain aneurysm COPD (chronic obstructive pulmonary disease) Carcinoma of colon Cerebrovascular accident Diabetes mellitus Heart disease Hypertension Throat cancer Social History Social History Smoking packs per day: 1 Smoking cigarettes per day: 20.0 Years smoked: 60 Smoking pack-years: 60.00 Smoking status: Current every day smoker Tobacco type: cigarettes Second hand tobacco smoke exposure: Yes Alcohol intake: never Substance use: never Substance use type: does not use Gender identity (if verbalized by the patient): Female Sexual Orientation (if Verbalized by the Patient): Straight or Heterosexual Spiritual care concerns: No Comments At time of signature, agree with nursing past medical, surgical, social and family history. There is no relevant family history pertinent to the presenting complaint Exam Narrative: GENERAL: Well-appearing, well-nourished, and in no acute distress. HEAD: Normocephalic, atraumatic.
== END 2021-04-08 14:57 | disposition home or self-care (01) ==
PROVIDERS: Emergency Provider Registered Nurse; PCP Internal Medicine
DX: S70.01XA Contusion of right hip, initial encounter (principal); W19.XXXA Unspecified fall, initial encounter; E11.9 Type 2 diabetes mellitus without complications; E78.00 Pure hypercholesterolemia, unspecified; I10 Essential (primary) hypertension; F17.210 Nicotine dependence, cigarettes, uncomplicated; Z86.73 Personal history of transient ischemic attack (TIA), and cerebral infarction without residual deficits; H26.9 Unspecified cataract
CPT/HCPCS: 73502; 99213; G0463

== ENCOUNTER 2021-04-11 13:34 | Emergency (ER) | payer OTHER, SELFPAY ==
[2021-04-11 13:44] VITALS: BP 185/46; PULSE 67; RESP 18; TEMP 36.7; O2SAT 99
--- NOTE | 2021-04-11 14:03 | ED.WOUNDLAC ---
HPI - Wound/Laceration General Chief Complaint: Skin/Abscess/Foreign Body Stated Complaint: suture removal Time Seen by Provider: 04/11/21 13:56 Source: patient, family and RN notes reviewed Mode of arrival: ambulatory Limitations: no limitations History of Present Illness HPI narrative: Patient presents today for suture removal. She fell on 04/04/2021, came to [facility] and had 6 sutures placed in her right elbow. Denies any complaints or complications with the sutures and states her elbow has been healing properly. Daughter states patient has been picking at the scabs overlying the laceration. Related Data Home Medications Medication Instructions Recorded Confirmed amlodipine 10 mg PO DAILY 09/30/20 04/11/21 atorvastatin 20 mg PO DAILY 09/30/20 04/11/21 clopidogrel 75 mg PO DAILY 09/30/20 04/11/21 lisinopril 20 mg PO BID 09/30/20 04/11/21 metoprolol succinate 150 mg PO DAILY 09/30/20 04/11/21 oxcarbazepine 300 mg PO BID 03/04/21 04/11/21 Allergies Allergy/AdvReac Type Severity Reaction Status Date / Time Penicillins Allergy Severe Anaphylaxis Verified 04/11/21 13:40 Review of Systems Review of Systems: CONSTITUTIONAL: Denies body aches, fever, chills, or sweats. EYES: Denies visual changes, redness, or discharge. ENT: Denies rhinorrhea, congestion, sore throat, or otalgia. CARDIOVASCULAR: Denies chest pain, palpitations, or edema. RESPIRATORY: Denies cough or dyspnea. GASTROINTESTINAL: Denies abdominal pain, nausea, vomiting, or diarrhea. GENITOURINARY: Denies dysuria or hematuria. SKIN: Denies rash, itching. + Healing wound to right elbow MUSCULOSKELETAL: Denies back pain, joint pain, or myalgia. NEUROLOGIC: Denies headache, numbness, tingling, or weakness. PSYCH: Denies depression or anxiety. [facility] Past Medical History Medical History Acute respiratory failure with hypoxia Cataract Bilateral CVA (cerebral vascular accident) X4 Diabetes Controlled with diet Hypercholesteremia Hypertension Pneumonia Smoker Subcapital fracture of left femur TIA (transient ischemic attack) Surgical History Surgical History H/O: hysterectomy History of appendectomy Hx of cholecystectomy Family History Family History Other Acute alcohol abuse Acute myocardial infarction Alzheimer disease Brain aneurysm COPD (chronic obstructive pulmonary disease) Carcinoma of colon Cerebrovascular accident Diabetes mellitus Heart disease Hypertension Throat cancer Social History Social History Smoking packs per day: 1 Smoking cigarettes per day: 20.0 Years smoked: 60 Smoking pack-years: 60.00 Smoking status: Current every day smoker Tobacco type: cigarettes Second hand tobacco smoke exposure: Yes Alcohol intake: never Substance use: never Substance use type: does not use Gender identity (if verbalized by the patient): Female Sexual Orientation (if Verbalized by the Patient): Straight or Heterosexual Spiritual care concerns: No Comments At time of signature, I have reviewed and agree with nursing past medical, surgical, social and family history unless otherwise noted. Please see nursing chart for further information. There is no relevant family history pertinent to the presenting complaint Exam Narrative: GENERAL: Well-appearing, well-nourished, and in no acute distress. HEAD: Normocephalic, atraumatic. EYES: EOMI. No redness or drainage. Conjunctivae normal. ENT: Mucous membranes pink and moist. NECK: Normal AROM. CHEST: No respiratory distress. EXTREMITIES: Normal range of motion. No edema. SKIN: Warm, dry, no rash. Capillary refill normal. Normal skin turgor. 6 intact sutures noted to healing laceration to the right elbow. No
== END 2021-04-11 14:07 | disposition home or self-care (01) ==
PROVIDERS: Emergency Provider Nurse Practitioner; PCP Internal Medicine
DX: S51.011D Laceration without foreign body of right elbow, subsequent encounter (principal); W19.XXXD Unspecified fall, subsequent encounter; F17.210 Nicotine dependence, cigarettes, uncomplicated; E11.9 Type 2 diabetes mellitus without complications; I10 Essential (primary) hypertension; Z86.73 Personal history of transient ischemic attack (TIA), and cerebral infarction without residual deficits; H26.9 Unspecified cataract
CPT/HCPCS: 99211; G0463

== ENCOUNTER 2021-06-29 14:44 | Observation (INO) | payer OTHER, SELFPAY ==
[2021-06-29] VITALS (46 sets, daily range): BP systolic 70–157; BP diastolic 42–81; PULSE 43–101; RESP 11–24; TEMP 30.1; O2SAT 66–100
--- NOTE | ~2021-06-29 | XR_ITS ---
EXAMINATION: XR chest ET placement DATE: 06/29/2021 15:06 INDICATION: Unresponsive TECHNIQUE: frontal view of the chest was obtained. COMPARISON: Chest radiograph dated 03/09/2021 FINDINGS: Endotracheal tube tip 4.5 cm above the brigitte. Mild biapical pleural-parenchymal scarring. No other a irspace opacities, pulmonary edema, pleural effusion or pneumothorax. The cardiomediastinal silhouett e is normal. Atherosclerotic aorta. IMPRESSION: 1. No acute cardiopulmonary disease. Reviewed, dictated and finalized at location H. ORIZATION NURSE
--- NOTE | ~2021-06-29 | CT_ITS ---
EXAMINATION: CT brain wo con DATE: 06/29/2021 16:02 INDICATION: Unresponsive post fall TECHNIQUE: Computed tomography (CT) of the head was performed without intravenous contrast. Sagittal and coronal reconstructions were performed. The mA was adjusted according to patient size. Iterative reconstruction technique was employed. The dose-length product was 681.00 mGy-cm. COMPARISON: head CT dated 05/24/2016 FINDINGS: No fracture. Large subdural hematoma with mixed attenuation extending across the entire right cerebra l hemisphere which measures up to 3.9 cm in maximal thickness at the level of the sylvian fissure. Th ere is results in both subfalcine as well as right uncal herniation. There is up to 2.6 cm right to l eft midline shift at the level of the ventricular septum. There is additional small amount of subdura l hematoma extending along the tentorium. There is small subdural hematoma also with mixed attenuatio n extending around the margins of the left cerebral hemisphere measuring up to 7 mm in thickness and is likely subacute to chronic small subdural hematoma of slightly greater than CSF attenuation at the margins of the right cerebellar hemisphere. There is effacement of the right lateral ventricle and l ikely entrapment of the left lateral ventricle the occipital and temporal horns of which are dilated relative to the prior study. Gross-white matter is preserved with no evident acute infarction. There i s moderate scattered white matter hypoattenuation consistent with chronic small vessel ischemic disea se. No discrete masses identified. Changes of bilateral intraocular lens replacement. The visualized endotracheal tube and nasogastric tube extending to the oral cavity and right nasal cavity respectiv gita. Mild mucosal thickening the bilateral ethmoid sinuses. Small left mastoid effusion. IMPRESSION: 1. Large right subdural hematoma with both right uncal herniation and [id number] subfalcine hernia tion measuring 2.6 cm at the level of the ventricular septum 2. Additional small subdural hematoma extending along the tentorium and small subdural hematomas in t he posterior fossa, acute on the left and more chronic appearing on the right. 3. Enlargement of the left lateral ventricle consistent with entrapment. 4. Emergent neurosurgical consultation is indicated. Dr. Sadler discussed these findings with Dr. Willian jarquin at 4:10 PM. Reviewed, dictated and finalized at location [facility] MD IMPRESSION: 1. Large right subdural hematoma with both right uncal herniation and right-to- left subfalcine herniation measuring 2.6 cm at the level of the ventricular sep koko 2. Additional small subdural hematoma extending along the tentorium and small s ubdural hematomas in the posterior fossa, acute on the left and more chronic ap pearing on the right. 3. Enlargement of the left lateral ventricle consistent with entrapment. 4. Emergent neurosurgical consultation is indicated. Dr. Sadler discussed the se findings with Dr. Yepez at 4:10 PM.
--- NOTE | ~2021-06-29 | CT_ITS ---
EXAMINATION: CT cervical spine wo con DATE: 06/29/2021 16:03 INDICATION: Fall. Unresponsive. TECHNIQUE: Computed tomography (CT) of the cervical spine was performed without intravenous contrast. Automated exposure control and iterative reconstruction technique were employed. The dose-length pro duct was 143.79 mGy-cm. COMPARISON: None FINDINGS: Endotracheal tube extends into the upper thoracic trachea and beyond the inferior margin of the field -of-view. Nasogastric tube extends into the upper thoracic esophagus and beyond the inferior margin o f the [id number]. Mild cervical levocurvature. Sagittal alignment is normal. Vertebral body height s are normal. No fracture. Severe osteoarthritis at the atlantoaxial articulation. Moderate disc heig ht loss at C5-C6 and C6-C7 and mild disc height loss at C2-C3, C3-C4 and C4-C5. Disc bulges and small amount of ascites along the posterior longitudinal ligament result in mild central canal stenosis fr om C3-C4 through C6-C7. Multilevel moderate to severe bilateral cervical facet osteoarthritis resulti ng in multilevel neural foraminal stenosis greatest bilaterally at C5-C6 and C6-C7 where it is of mil d to moderate severity. Atherosclerotic calcific a cyst at the bilateral carotid bulbs. Left-sided pr edominant multinodular goiter. Mild emphysema with mild biapical pleural-parenchymal scarring. No acu te intracranial hemorrhage which is further detailed on separate head CT report. IMPRESSION: 1. Cervical spondylosis with no acute osseous abnormality. 2. Large intracranial hemorrhage. See head CT report also from 06/29/2021 for further detail. Reviewed, dictated and finalized at location . ING SPECIALIST IMPRESSION: 1. Cervical spondylosis with no acute osseous abnormality. 2. Large intracranial hemorrhage. See head CT report also from 06/29/2021 for f urther detail.
--- NOTE | 2021-06-29 14:52 | ECG_ITS ---
Measurements Intervals [place] Rate: 49 P: 81 TN: 192 QRS: 66 QRSD: 102 T: 0 QT: 216 QTc: 196 Interpretive Statements SINUS BRADYCARDIA BORDERLINE ST-T WAVE ABNORMALITY- ANTEROLAT/HIGH LAT LEADS PROLONGED QT INTERVAL ABNORMAL ECG Electronically Signed On 06-29-2021 17:50:12 CANDY ROLLER by Fan Bloom D.O.
--- NOTE | 2021-06-29 14:55 | ED.GENADULT ---
HPI - General Adult General Chief complaint: Shortness of Breath/Dyspnea <Brooks Wynne MD - Last Filed: 06/29/21 19:16> Stated complaint: Unresponsive <Brooks Wynne MD - Last Filed: 06/29/21 19:16> Time Seen by Provider: 06/29/21 14:52 <Brooks Wynne MD - Last Filed: 06/29/21 19:16> Source: EMS and RN notes reviewed <Brooks Wynne MD - Last Filed: 06/29/21 19:16> Mode of arrival: EMS <Brooks Wynne MD - Last Filed: 06/29/21 19:16> Limitations: clinical condition <Brooks Wynne MD - Last Filed: 06/29/21 19:16> History of Present Illness HPI narrative: Patient brought to the emergency room by ambulance from home. EMT is telling me that patient last time was seen by somebody was last night, patient lives alone, found by one of the family laying down on the floor unresponsive, EMT arrived to home, patient was facing down with vomitus all over. EMT is telling me that patient is full code, arrived to the ED intubated, IO left lower extremity. They thought patient's daughter arrived to the emergency room and told me that patient is fully vaccinated and boosted for Covid, was doing great last night watching her movies, today at 2 PM did not answer her phone call, daughter went found her laying down on the floor, immediately called 911. Patient arrived to the ED intubated, daughter who have the power of outbound supervisor told me that if her heart stopped anytime. DO NOT RESUSCITATE. Also I was told that patient had cataract surgery and her pupils are not the same size. <Brooks Wynne MD - Last Filed: 06/29/21 19:16> Related Data Home medications: Home Medications Medication Instructions Recorded Confirmed amlodipine 10 mg PO DAILY 09/30/20 04/11/21 atorvastatin 20 mg PO DAILY 09/30/20 04/11/21 clopidogrel 75 mg PO DAILY 09/30/20 04/11/21 lisinopril 20 mg PO BID 09/30/20 04/11/21 metoprolol succinate 150 mg PO DAILY 09/30/20 04/11/21 oxcarbazepine 300 mg PO BID 03/04/21 04/11/21 <Brooks Wynne MD - Last Filed: 06/29/21 19:16> Allergies/adverse reactions: Allergies Allergy/AdvReac Type Severity Reaction Status Date / Time Penicillins Allergy Severe Anaphylaxis Verified 04/11/21 13:40 <Brooks Wynne MD - Last Filed: 06/29/21 19:16> Review of Systems Review of Systems: ROS unobtainable: Yes unobtainable due to endotracheal tube and unobtainable due to medical condition <Brooks Wynne MD - Last Filed: 06/29/21 19:16> [facility] Past Medical History Medical History: Medical History Acute respiratory failure with hypoxia Cataract Bilateral CVA (cerebral vascular accident) X4 Diabetes Controlled with diet Hypercholesteremia Hypertension Pneumonia Smoker Subcapital fracture of left femur TIA (transient ischemic attack) <Brooks Wynne MD - Last Filed: 06/29/21 19:16> Surgical History Surgical History: Surgical History H/O: hysterectomy History of appendectomy Hx of cholecystectomy <Brooks Wynne MD - Last Filed: 06/29/21 19:16> Family History Family History: Family History Other Acute alcohol abuse Acute myocardial infarction Alzheimer disease Brain aneurysm COPD (chronic obstructive pulmonary disease) Carcinoma of colon Cerebrovascular accident Diabetes mellitus Heart disease Hypertension Throat cancer <Brooks Wynne MD - Last Filed: 06/29/21 19:16> Social History Social History: Social History Smoking packs per day: 1 Smoking cigarettes per day: 20.0 Years smoked: 60 Smoking pack-years: 60.00 Smoking status: Current every day smoker Tobacco type: cigarettes Second hand tobacco smoke exposure: Yes Alcohol intake: never Substance use: never Substance use type: does not use Gender identity (i
[2021-06-29] MEDS: SODIUM CHLORIDE 0.9% IV 1,000 ML 999 ML IV CONT (15:04)
[2021-06-29 15:11] LABS: Basophils Percent Auto 0.4 % (0.2-1.2); Immature Granulocyte Absolute 0.02 K/mm3 (0.00-0.031); Immature Granulocyte Percent A 0.4 % (0-0.5); Lymphocytes Absolute Auto 0.24 K/mm3 (0.9-3.2); Lymphocytes Percent Auto 5.1 % (18.3-44.2); Mean Corpuscular HGB Conc 33.3 g/dl (32-36); Mean Corpuscular Hemoglobin 28.8 pg (26-34); Mean Corpuscular Volume 86.3 fl (80-100); Mean Platelet Volume 11.1 fl (7.4-10.4); Monocytes Absolute Auto 0.2 K/mm3 (0.1-0.6); Monocytes Percent Auto 4.5 % (2.6-8.5); Neutrophils Absolute Auto 4.2 K/mm3 (1.3-6.7); Neutrophils Percent Auto 89.6 % (45.5-73.1); Platelet Count Result 174 k/mm3 (150-375); Red Blood Count 3.13 M/mm3 (4.2-5.4); Red Cell Distribution Width 13.2 % (11.5-14.5); White Blood Count 4.7 K/mm3 (4.5-10.0)
[2021-06-29 15:22] LABS: Lactic Acid Reflex 2.6 mmol/L (0.7-2.1)
[2021-06-29 15:25] LABS: INR 1.2; Prothrombin Time 14.7 Seconds (11.1-14.7)
[2021-06-29 15:26] LABS: Creatine Kinase 97 U/L (30-135); Partial Thromboplastin Time 29.5 SECONDS (22.3-36.8)
[2021-06-29 15:29] LABS: Base Excess ABG -1.9 mEq/l (+/-2.0); HCO3 ABG 21.2 mEq/l (22.0-26.0); Oxygen Saturation ABG 99.9 % (95.0-100.0); PCO2 ABG 28.7 mmHg (35.0-45.0); PO2 ABG 491.1 mmHg (80.0-100.0); pH ABG 7.486 (7.350-7.450)
[2021-06-29 15:30] LABS: Alveolar/Arterial O2 Gradient 193.2 mmHg; Device VENTILATOR; Modified Allen's Test Pass; Oxygen Content ABG 11.3 %vol (16.0-22.0); Oxyhemoglobin 97.8 % THb (90.0-100.0); Site Drawn RIGHT RADIAL; Total Hemoglobin 7.2 g/dL (12.0-18.0)
--- NOTE | 2021-06-29 15:33 | PC.NURSE ---
while speaking with this RN and Dariana Haynes RN, daughter, POA, states she does not want patient to be resuscitated if her heart stops
[2021-06-29 15:39] LABS: Alanine Aminotransferase 12 U/L (4-35); Albumin Level 2.7 g/dL (3.5-5.1); Alkaline Phosphatase 72 U/L (38-126); Anion Gap 7 mmol/L (8-16); Aspartate Amino Transferase 39 U/L (14-36); Bilirubin,Total 0.2 mg/dL (0.2-1.3); Blood Urea Nitrogen 37 mg/dL (7-17); Calcium 7.8 mg/dL (8.4-10.2); Carbon Dioxide 25 mmol/L (22-30); Chloride 104 mmol/L (98-107); Estimated Glomerular Filt Rate 25; Glucose 577 mg/dL (65-110); Sodium 136 mmol/L (137-145)
[2021-06-29 15:47] LABS: Troponin I 0.045 ng/mL (0.000-0.034)
[2021-06-29 15:50] LABS: EDCOVIDSCREEN Negative (Negative)
[2021-06-29 15:54] LABS: Add Urine Microscopic? YES; Appearance Urine Cloudy (Clear); Bilirubin Urine Negative (Negative); Blood Urine Negative (Negative); Color Urine Straw (Yellow); Glucose Urine UA 3+ mg/dL (Negative); Ketones Urine Negative (Negative); Leukocyte Esterase Ur 1+ LEU/UL (Negative); Mucus Urine Rare /lpf; Nitrate Urine Negative (Negative); Protein Urine 3+ mg/dL (Negative); Specific Grav Ur 1.013 (1.001-1.035); Squamous Epithelial Cell Urine Rare /hpf (Few); Urobilinogen Urine Negative mg/dL (<2.0); WBC Clumps Urine Present /HPF; WBC Urine >75 /hpf
--- NOTE | 2021-06-29 16:41 | PC.NURSE ---
1530- WHILE SPEAKING WITH PATIENTS DAUGHTERS, THEY STATED IF THEIR MOTHERS HEART STOPPED, THEY DID NOT WISH CPR TO BE PERFORMED.
--- NOTE | 2021-06-29 17:12 | PC.NURSE ---
Per Susie, pt daughter, and states she is POA, she and the family wish for the patient to be extubated at this time.
--- NOTE | 2021-06-29 17:45 | PC.NURSE ---
PT EXTUBATED BY RESP AFTER ORDER BY DR CASTILLO. PT NGT AND C COLLAR ALSO REMOVED
--- NOTE | 2021-06-29 18:00 | PC.NURSE ---
FAMILY CURRENTLY AT BEDSIDE. CONT TO MONITOR.
[2021-06-29 18:08] LABS: Reflex Lactic Acid Yes or No Add Lactic
--- NOTE | 2021-06-29 19:25 | PC.NURSE ---
Report received from JAZZY Cade. Assumed care of patient at this time. Family at bedside.
--- NOTE | 2021-06-29 20:27 | PC.NURSE ---
Patient family remains at bedside. Patient VS 46bpm, O2 is 75% on RA, 20 RR, and 127/54 bp.
--- NOTE | 2021-06-29 20:38 | PC.NURSE ---
This nurse went to assess patient and speak with family. Per daughter, may want to speak with ERP about some medications for patient to make her more comfortable. ERP notified.
--- NOTE | 2021-06-29 20:55 | PC.NURSE ---
2050 This nurse and ERP go into room to speak to family and patients POA about medications. ERP explained to patients family in regards to mechanism of action and purposes of the medications. Patients family and POA agree to medication administration.
[2021-06-29] MEDS: MORPHINE SULFATE (*CRX) 4 MG/ML INJ IV PUSH ×2 (21:02→22:45)
[2021-06-29] MEDS: LORazepam INJ (*CRX) 2 MG/ML VIAL 1 MG IV PUSH (21:02)
[2021-06-30] VITALS (9 sets, daily range): BP systolic 80–112; BP diastolic 34–51; PULSE 45–80; RESP 9–22; TEMP 27.4–36.1; O2SAT 79–86; BMI 20.9
--- NOTE | 2021-06-30 00:53 | PM.IMHP ---
H&P: HPI History of Present Illness Date/Time: 06/30/21 00:53 Chief Complaint: Altered mental status. Narrative: This is an 88-year-old female with past medical history significant for hypertension , tobacco use, transitory ischemic attack, hypercholesterolemia, type 2 diabetes mellitus. Patient was found down by her daughter after she did not answer the phone daughter went to check on hair, patient lives behind daughter's house, she was found down and unresponsive EMS was called and patient was intubated on the field and brought to the emergency room. In emergency room patient was evaluated and CT head showed large subdural right-sided hematoma with uncal herniation. After lengthy discussion family have decided to make the patient comfort care measures only patient has been extubated and placed on comfort care measures only. Review of Systems Review of Systems: Patient was brought in via EMS after she was found down in her house on unresponsive. No history has been able to be obtained as patient is comatose. PMFSH Past Medical History Medical History Acute respiratory failure with hypoxia Cataract Bilateral CVA (cerebral vascular accident) X4 Diabetes Controlled with diet Hypercholesteremia Hypertension Pneumonia Smoker Subcapital fracture of left femur TIA (transient ischemic attack) Surgical History Surgical History H/O: hysterectomy History of appendectomy Hx of cholecystectomy Family History Family History Other Acute alcohol abuse Acute myocardial infarction Alzheimer disease Brain aneurysm COPD (chronic obstructive pulmonary disease) Carcinoma of colon Cerebrovascular accident Diabetes mellitus Heart disease Hypertension Throat cancer Social History Social History Smoking packs per day: 1 Smoking cigarettes per day: 20.0 Years smoked: 60 Smoking pack-years: 60.00 Smoking status: Current every day smoker Tobacco type: cigarettes Second hand tobacco smoke exposure: Yes Alcohol intake: never Substance use: never Substance use type: does not use Gender identity (if verbalized by the patient): Female Sexual Orientation (if Verbalized by the Patient): Straight or Heterosexual Spiritual care concerns: No Meds Home Medications and Allergies Home Medications Medication Instructions Recorded Confirmed Type amlodipine 10 mg PO DAILY 09/30/20 04/11/21 History atorvastatin 20 mg PO DAILY 09/30/20 04/11/21 History clopidogrel 75 mg PO DAILY 09/30/20 04/11/21 History lisinopril 20 mg PO BID 09/30/20 04/11/21 History metoprolol succinate 150 mg PO DAILY 09/30/20 04/11/21 History oxcarbazepine 300 mg PO BID 03/04/21 04/11/21 History acetaminophen [Mapap 650 mg PO Q6H PRN #30 tablet 03/11/21 04/11/21 Rx (acetaminophen)] albuterol sulfate [Proventil HFA] 2 puff INHALATION QIDRT PRN #1 ea 03/11/21 04/11/21 Rx aspirin 325 mg PO DAILY 26 Days #26 tablet 03/11/21 04/11/21 Rx docusate sodium 100 mg PO BID PRN #30 cap 03/11/21 04/11/21 Rx hydrocodone-acetaminophen 1 tablet PO Q4H PRN #14 tablet 03/11/21 04/11/21 Rx magnesium hydroxide [Milk of 30 ml PO BID PRN #3000 ml 03/11/21 04/11/21 Rx Magnesia] melatonin 5 mg PO HS PRN #30 tablet 03/11/21 04/11/21 Rx pantoprazole 40 mg PO Q12HR #60 tablet 03/11/21 04/11/21 Rx clindamycin HCl 300 mg PO TID 5 Days #15 cap 04/04/21 04/11/21 Rx Allergies Allergy/AdvReac Type Severity Reaction Status Date / Time Penicillins Allergy Severe Anaphylaxis Verified 04/11/21 13:40 Vital Signs Vital Signs - 24 hr 06/29/21 14:51 06/29/21 14:55 06/29/21 15:00 Temperature 86.2 F L Pulse Rate 58 L 101 H 95 Respiratory Rate 20 20 18 Blood Pressure 70/46 L 70/46 L 89/42 L Pulse Oximetry 100 100 100 06/29/21 15:15 06/29/21 15:31
--- NOTE | 2021-06-30 01:23 | ADMGEN ---
This patient, Jackie Flores, was admitted to 2 Medical Room 261-01 @ 0124. Patient/family oriented to hospital policies and general routines including ID bracelet, bed and alarms, visiting hours, pain management, procedures, bathroom and other care routines, personal items, smoking policy, room service/diet, and visiting hours. Information on how to activate the Rapid Response Team has been discussed. Patient/Family are encouraged to report perceived risks to care and to ask questions if they do not understand what they are told or what they should do.
[2021-06-30] MEDS: MORPHINE SULFATE (*CRX) 4 MG/ML INJ IV PUSH ×4 (01:56→18:47)
--- NOTE | 2021-06-30 08:31 | PM.IMPN ---
Progress Note: A&P Assessment and Plan (1) Acute subdural hematoma: Code(s): S06.5X9A - Traumatic subdural hemorrhage with loss of consciousness of unspecified duration, initial encounter Status: Acute Assessment and Plan: This is an 88-year-old female with a history of hypertension, tobacco use, transitory ischemic attack, hypercholesterolemia, type 2 diabetes mellitus, who was found down by her family 06/29/21 after she was not answering her phone. EMS was called and patient was intubated in the field and brought to the emergency room. In emergency room patient was evaluated and CT head showed large subdural right-sided hematoma with uncal herniation. After lengthy discussion family have decided to make the patient comfort care measures only patient has been extubated and placed on comfort care measures only. CT of the head shows herniation and patient is comatose. Patient has been made comfort care measures only. Family present and at bedside. Time Spent With Patient Time with patient: 25 - 35 minutes Subjective Date/time seen: 06/30/21 08:31 Interval history: Date of service 06/30/21: Patient is resting comfortably at this time with her daughter at bedside. Daughter does not report any complaints or issues at this time. Comfort care measures continued. Review of Systems Review of Systems: ROS unobtainable: Yes unobtainable due to mental status Exam Narrative: General: 85-year-old woman laying flat in bed with head turned to the left, snoring. Appears comfortable. In no acute distress. HEENT: Bruising noted to her bottom left lip, no open wounds or acute bleeding. Skin: No jaundice or cyanosis. Good skin turgor. Neck: Full range of motion. Supple. Respiratory: Lungs are clear to auscultation bilaterally. No bony chest wall tenderness. Cardiovascular: The heart has a regular rate and rhythm without murmur. Lower extremities: No lower extremity edema. Distal pulses are easily palpated. No calf tenderness to palpation. : Carrasquillo catheter in place. Psychiatric: Unresponsive. Neurologic: Unresponsive from subdural hematoma. Not moving during my examination. Objective Data Vital Signs Vital Signs: Vital Signs - 24 hr 06/29/21 14:51 06/29/21 14:55 06/29/21 15:00 Temperature 86.2 F L Pulse Rate 58 L 101 H 95 Respiratory Rate 20 20 18 Blood Pressure 70/46 L 70/46 L 89/42 L Pulse Oximetry 100 100 100 06/29/21 15:15 06/29/21 15:31 06/29/21 15:46 Temperature Pulse Rate 44 L 44 L 46 L Respiratory Rate 20 20 17 Blood Pressure 113/48 L 111/59 L 106/53 L Pulse Oximetry 100 100 100 06/29/21 15:48 06/29/21 16:04 06/29/21 16:16 Temperature Pulse Rate 48 L 46 L 43 L Respiratory Rate 18 18 Blood Pressure 131/81 121/54 L Pulse Oximetry 100 100 06/29/21 16:31 06/29/21 16:46 06/29/21 16:56 Temperature Pulse Rate 45 L 46 L 46 L Respiratory Rate 16 18 24 H Blood Pressure 130/42 L 128/56 L 128/56 L Pulse Oximetry 100 100 100 06/29/21 17:01 06/29/21 17:16 06/29/21 17:31 Temperature Pulse Rate 46 L 46 L 46 L Respiratory Rate 17 20 18 Blood Pressure 126/58 L 138/55 L 138/53 L Pulse Oximetry 100 100 100 06/29/21 17:35 06/29/21 17:46 06/29/21 18:01 Temperature Pulse Rate 52 L 48 L 46 L Respiratory Rate 11 L 17 18 Blood Pressure 148/73 H 157/57 H 131/50 L Pulse Oximetry 100 92 84 L 06/29/21 18:31 06/29/21 19:00 06/29/21 19:01 Temperature Pulse Rate 44 L 47 L 46 L Respiratory Rate 21 H 19 18 Blood Pressure 121/59 L 140/79 Pulse Oximetry 85 L 87 L 86 L 06/29/21 19:15 06/29/21 19:30 06/29/21 19:45 Temperature Pulse Rate 47 L 48 L 47 L Respiratory Rate 17 19 17 Blood Pressure Pulse Oximetry 89 L 85 L 85 L 06/29/21 20:00 06/29/21 20:02 06/29/21 20:15 Temperature Pulse Rate 47 L 46 L 48 L Respiratory Rate 19 19 20 Blood Pressure 127/54 L Pulse Oximetry 83 L 82 L 75 L 06/29/21 20:30 06/29/21 20:45 06/29/21 20
[2021-06-30] MEDS: SCOPOLAMINE 1.5 MG PATCH TRANSDERM (09:06)
[2021-06-30] MEDS: LORazepam INJ (*CRX) 2 MG/ML VIAL 1 MG IV PUSH ×2 (14:41→20:38)
[2021-06-30 15:31] LABS: Arterial Blood Gas PEEP 5 cmH2O; Arterial Blood Gas Tidal Volume 300 ml; Arterial Blood Gas Vent Mode CMV; Arterial Blood Gas Ventilator rate 20 /MIN
[2021-06-30 15:32] LABS: Fractional Inspired Oxygen 100 %
--- NOTE | 2021-06-30 23:52 | PC.NURSE ---
2343 called to patient room by daughter. patient without pulse, respirations, corneal reflex. daughter at bedside. nursing supervisor shipping room notified.
--- NOTE | 2021-07-01 01:21 | PC.NURSE ---
body to [facility] per cart
--- NOTE | 2021-07-07 14:14 | PM.DDS ---
Discharge Summary Date and Time Date of : 06/30/21 Time of : 23:43 Provider Pronounced By: ADRIANE LIZAMA RN Probable Cause of Probable Cause of : Intracranial hemorrhage Summary Hospital Course: 85 years old female was admitted in the hospital for intracranial hemorrhage. After discussion with the family patient was transferred to hospice and comfort measures were carried out. Patient 06/30/2021, family notified. Additional Data Confirmation of as documented by pronouncing clinician: Pupillary Reflex, Palpable Pulses, Response to Stimuli, Heart Tones and Breath Sounds Name of Provider Notified: MCKENNA Time Provider Notified: 23:55 Provider Requests Autopsy: No Family Requests Autopsy: No Petroleum Geologist Notified: Yes Date [facility] Notified of : 07/01/21 Time [facility] Notified of : 00:10
== END 2021-06-30 23:43 | disposition expired ==
LOC: ANHED 20:56 → ANH2MED 06-30 00:49
PROVIDERS: Emergency Medicine; Admitting Provider Internal Medicine; Emergency Provider Emergency Medicine; PCP Internal Medicine; Visit Provider Physician Assistant
DX: Z51.5 Encounter for palliative care (principal); I62.00 Nontraumatic subdural hemorrhage, unspecified; I10 Essential (primary) hypertension; Z86.73 Personal history of transient ischemic attack (TIA), and cerebral infarction without residual deficits; E78.00 Pure hypercholesterolemia, unspecified; E11.9 Type 2 diabetes mellitus without complications; F17.210 Nicotine dependence, cigarettes, uncomplicated; Z20.822 Contact with and (suspected) exposure to COVID-19; Z79.899 Other long term (current) drug therapy
CPT/HCPCS: 36415; 36600; 51702; 70450; 72125; 80053; 81001; 82550; 82805; 83605; 84484; 85025; 85610; 85730; 86140; 87040; 87077; 87086; 87088; 87186; 87426; 93005; 96361; 96374; 96375; 96376; 99291; A9270; C9803; G0378; J2060; J2270; J7030; L0140